=== PATIENT | female | born 1955 | race Caucasian/White ===

== ENCOUNTER 2016-06-11 12:17 | Inpatient (IN) ==
[2016-06-11] MEDS ORDERED: Nitroglycerin 0.4 MG TAB.SUBL SL PRN (14:39)
[2016-06-11] MEDS: Nitrofurantoin (BID) 100 MG CAPSULE PO SCH (16:56)
[2016-06-11] MEDS: Furosemide 40 MG TABLET PO SCH (16:56)
[2016-06-11] MEDS: *HR* OxyCODONE ER (12 HR) 10 MG TABLET PO SCH (16:56)
--- NOTE | 2016-06-11 18:14 | Internal Med History&Physical ---
Date of Encounter: 06/11/16 Time of Encounter: 17:20 Assessment and Plan (1) Hyperthyroidism Current visit: No Status: Acute Consistent with Graves' disease without ophthalmopathy. Tapazole has been held because of thrombocytopenia/pancytopenia. Continue metoprolol (2) Anemia Current visit: Yes Status: Acute Will order anemia testing in a.m. Qualifiers: Anemia type: unspecified type Qualified Code(s): D64.9 - Anemia, unspecified (3) HTN (hypertension) Current visit: No Status: Chronic Continue Norvasc, Lasix, HCTZ, lisinopril, and Toprol Qualifiers: Hypertension type: essential hypertension Qualified Code(s): I10 - Essential (primary) hypertension (4) Atrial fibrillation Current visit: No Status: Acute Now in normal sinus rhythm. Continue Toprol Qualifiers: Atrial fibrillation type: persistent Qualified Code(s): I48.1 - Persistent atrial fibrillation (5) Thrombocytopenia Current visit: No Status: Acute Remain off Tapazole monitor CBC. Internal Medicine - H&P: HPI Chief complaint: Hyperthyroxinemia Admitted From: Hospital to Hospital Transfer Plans for Post Hospital Care: Home History of present illness: Ms. Rivas is a 60 year old female who was admitted at [facility] June 05 after presenting at her PCP office with AF with RVR. She was found to have hyperthyroxinemia with undetectable TSH and thyroid stimulating immunoglobulin greater than 500%. She was treated with methimazole until she developed thrombocytopenia. She converted to normal sinus rhythm but was maintained on Eliquis. She also was maintained on metoprolol. She was transferred to [facility] swing bed for ongoing therapy prior to returning home. Review of available records show suppressed TSH as far back as June 2014 which is earliest available labs for review. Her free T4 level was normal July 2015. Her endocrine history is pertinent otherwise for past diagnosis of DM 2 made 2001 however she denies treatment for the last 10 years. She denies hyperlipidemia and states she was given statin only because of her ASHD. She states she was hospitalized at [facility] in April 2016 with AF with RVR. She denies previous episodes of atrial fibrillation before that hospitalization. Her cardiovascular history is significant otherwise for hypertension and known ASHD status post [place] with 2 vessel CABG surgery 2001. She had a heart catheter during her [facility] stay [per her [facility] records]. She had a heart catheter previously at [facility] April 2015 which showed severe 2 vessel coronary disease with patent [place] to LAD but occluded saphenous vein graft to PDA. An echocardiogram January 2016 showed LVEF of 60% and mild aortic insufficiency area there was LAE at 4.4 cm. She denies DVT or pulmonary embolus. Past Med Surg Social Fam HX - Past Medical History Medical history: coronary artery disease, hyperlipidemia, hypertension, osteoporosis, other Psychiatric history: depression - Past Surgical History Surgical History: cholecystectomy, coronary bypass (CABG), hysterectomy - Social History Smoking Status: Never smoker Smokeless Tobacco Status: No Alcohol use: none Drug use: none - Family History Mother Adopted: No Family Member Ethnicity: Non- Living Status: Hx Family Cardiac Disorders: Yes (WA) Hx Family Respiratory Disorders: No Hx Family Cancer: Yes (Bowel Cancer) Hx Family GI Disorders: Yes (Bowel Cancer) Hx Family Endocrine Disorder: Yes (DM) Hx Family Neuromuscular Disorders: No Hx Family Neurologic Disorders: No Hx Family HEENT Disorders: No Hx Family Autoimmune Disorders: No Internal Medicine - H&P: Meds Ascorbic Acid [Vitamin C] 250 mg PO BID 04/23/15 [History] Calcium Carbonate/Vitamin D3 [Calcium 500 + Vit D Caplet] 1 tab PO BID 04/23/15 [History] Ergocalciferol (VITAMIN D2) [Vitamin D2 (50,000 UNIT)] 50,000 unit PO GILLIS [History] Folic Acid 2 mg PO DAILY 04/23/15 [History] Isosorbide MONOnitrate [Isosorbide Mononitrate ER] 120 mg PO DAILY 04/23/15 [ History] Metoprolol XL (24 HR) Succ [Toprol Xl] 100 mg PO DAILY 04/23/15 [History] Multivitamin/Iron/Folic Acid [Centrum Complete Multivit Tab] 1 tab PO DAILY [History] Nitroglycerin [Nitrostat] 0.4 mg SL Q5M PRN 04/23/15 [History] [place]-3/Dha/Epa/Fish Oil [Fish Oil Dr 500 mg Softgel] 1,000 mg PO DAILY [History] Pregabalin [Lyrica] 200 mg PO BID 04/23/15 [History] Ranolazine [Ranexa] 1,000 mg PO BID 04/23/15 [History] Simvastatin [Zocor] 20 mg PO HS 04/23/15 [History] Venlafaxine HCl [Effexor Xr] 75 mg PO DAILY 04/23/15 [History] Vitamin E 1,000 units PO DAILY 04/23/15 [History] Alprazolam [Xanax 1 MG Tablet] 0.25 mg PO BID PRN 01/29/16 [History] Amitriptyline [Elavil] 25 - 50 mg PO HS 01/29/16 [History] Oxycodone HCl/Acetaminophen [Percocet 10-325 mg Tablet] 1 tab PO Q6H PRN [History] Lisinopril [Zestril] 40 mg PO DAILY #0 02/01/16 [Rx] Amlodipine Besylate 2.5 mg PO DAILY 06/05/16 [History] Apixaban [Eliquis] 5 mg PO BID 06/05/16 [History] Furosemide [Lasix] 40 mg PO BID 06/05/16 [History] Hydrochlorothiazide 25 mg PO DAILY 06/05/16 [History] Megestrol Acetate [Megace] 400 mg PO DAILY 06/05/16 [History] Pantoprazole Sodium [Protonix] 40 mg PO DAILY 06/05/16 [History] Paroxetine HCl [Paxil] 20 mg PO DAILY 06/05/16 [History] Aspirin 81 mg PO DAILY #90 tab.chew 06/10/16 [Rx] Nitrofurantoin (BID) [Macrobid] 100 mg PO BIDWM #13 capsule 06/10/16 [Rx] OxyCODONE ER (12 HR) [OxyCONTIN] 10 mg PO Q12HR #60 tab.er.12h 06/11/16 [Rx] Allergies hydrocodone [From Vicodin] Allergy (Verified 06/05/16 14:36) Swelling of Lip/Tongue/Throat All Systems PM: A 10-system review of systems was performed and is negative for pertinent findings except as documented above in the HPI. Review of systems: Oral: She states her weight has decreased 54 pounds since December 2015, unintentional. Cardiovascular: As per history of present illness Respiratory: She states she is a lifelong nonsmoker and has no known chronic lung disease GI: She has had cholecystectomy. She reports diarrhea for the last 3 months. She denies disorders of her liver or exocrine pancreas : She denies hematuria dysuria or kidney stones Neurologic: She denies large distribution strokes or seizures. Endocrine: As per history of present illness Hematology/oncology: She has anemia. She denies internal malignancies or other blood disorders Psychiatric: She denies anxiety depression or mental health issues Musk skeletal: She has arthritis and degenerative disc disease of her neck. - Constitutional Vitals: Temp Pulse Resp BP Pulse Ox 98.5 F 56 18 128/71 98 06/11/16 14:55 06/11/16 14:55 06/11/16 14:55 06/11/16 14:55 06/11/16 14:55 Exam: Gen.: She is well-developed well-nourished female who appears in no severe distress at present time HEENT: Head is atraumatic and normal cephalic. Eyes: EOMI. There is no scleral icterus. She does not have exophthalmos. Mouth: Mucosa is moist. Neck: Supple and nontender. There is no thyromegaly or adenopathy noted. Heart: Regular without murmurs gallops or ectopics Lungs: No wheezes or crackles heard. Abdomen: Soft and nontender. No masses or guarding are noted. Extremities: There is no cyanosis edema or clubbing noted. Dorsalis pedis and posttibial pulses are 2 over 2 bilaterally. Neurologic: Mental status: She is talkative and a good historian. Cranial nerves: Smile is symmetric. Forehead wrinkles bilaterally. Tongue protrudes midline. EOMI. Motor: There is no pronator drift. She does not have visible tremor. Cerebellar: Finger to nose is intact bilaterally. Skin: Warm and dry.
[2016-06-11] MEDS: Ranolazine 500 MG TAB.ER.12H PO SCH (19:48)
[2016-06-11] MEDS: Ascorbic Acid 500 MG TABLET PO SCH (19:48)
[2016-06-11] MEDS: Pregabalin 50 MG CAPSULE PO SCH (19:48)
[2016-06-11] MEDS: APIXABAN 5 MG TABLET PO SCH (19:49)
[2016-06-11] MEDS ORDERED: NON-FORMULARY MEDICATION 1 EACH EACH (Calcium Carbonate/Vitamin D3 [Calcium 500 + Vit D Ca PO SCH (21:00)
[2016-06-12] MEDS: *HR* OxyCODONE ER (12 HR) 10 MG TABLET PO SCH ×2 (06:05→17:34)
[2016-06-12 06:16] LABS: Basophils % 0.2 %; Eosinophils % 0.5 %; Hematocrit 28.3 % (35.3-44.9); Hemoglobin 9.2 g/dL (11.5-15.4); Immature Granulocytes % 0.2 % (0-4); Lymphocytes # 1.2 K/mcL (0.6-4.6); Lymphocytes % 20.8 %; Mean Corpuscular HGB Conc 32.5 g/dL (31.6-35.5); Mean Corpuscular Hemoglobin 26.7 pg (28.0-33.3); Mean Corpuscular Volume 82.3 fL (83.0-100.0); Mean Platelet Volume 13.8 fL (9.4-12.4); Monocytes # 0.5 K/mcL (0.0-1.3); Monocytes % 7.8 %; Neutrophils # 4.2 K/mcL (1.6-8.9); Red Blood Count 3.44 M/mcL (3.82-4.97); Segmented Neutrophils % 70.5 %
[2016-06-12 06:29] LABS: Platelet Count 87 K/mcL (140-400)
[2016-06-12 06:32] LABS: Alanine Aminotransferase 20 Units/L (0-55); Albumin 2.3 g/dL (3.5-5.0); Albumin/Globulin Ratio 0.7 (1.1-2.2); Alkaline Phosphatase 223 Units/L (38-126); Aspartate Amino Transferase 32 Units/L (5-34); BUN/Creatinine Ratio 24 (6-26); Bilirubin,Total 1.1 mg/dL (0.2-1.2); Blood Urea Nitrogen 11 mg/dL (7-20); Calcium 8.9 mg/dL (8.6-10.8); Carbon Dioxide 25 mEq/L (19-29); Chloride 105 mEq/L (98-109); Globulin 3.3 g/dL (2.4-3.5); Glucose 95 mg/dL (70-99); Osmolality,Calculated 289 (280-300); Potassium 3.4 mEq/L (3.5-4.5); Sodium 140 mEq/L (136-145); Total Protein 5.6 g/dL (6.0-8.3); eGFR For African Americans > 60 (> 60); eGFR For Non-African Americans > 60 (> 60)
[2016-06-12] MEDS ORDERED: NON-FORMULARY MEDICATION 1 EACH EACH (Omega-3/Dha/Epa/Fish Oil [Fish Oil Dr 500 Mg Softgel PO SCH (09:00)
[2016-06-12] MEDS: APIXABAN 5 MG TABLET PO SCH ×2 (09:20→20:12)
[2016-06-12] MEDS: Pregabalin 50 MG CAPSULE PO SCH ×2 (09:20→20:11)
[2016-06-12] MEDS: Nitrofurantoin (BID) 100 MG CAPSULE PO SCH ×2 (09:20→17:33)
[2016-06-12] MEDS: Ascorbic Acid 500 MG TABLET PO SCH (09:21)
[2016-06-12] MEDS: Furosemide 40 MG TABLET PO SCH (09:21)
[2016-06-12] MEDS: Isosorbide MONOnitrate (24 HR) 60 MG TAB.ER.24H PO SCH (09:21)
[2016-06-12] MEDS: Lisinopril 20 MG TABLET PO SCH (09:21)
[2016-06-12] MEDS: Multivit/Ca/Min/Fe/FA 1 TAB TABLET PO SCH (09:21)
[2016-06-12] MEDS: Aspirin 81 MG TAB.CHEW PO SCH (09:22)
[2016-06-12] MEDS: Metoprolol XL (24 HR) Succ 50 MG TAB.ER.24H PO SCH (09:22)
[2016-06-12] MEDS: Folic Acid 1 MG TABLET PO SCH (09:22)
[2016-06-12] MEDS: Venlafaxine XR (24 HR) 37.5 MG CAP.ER.24H PO SCH (09:22)
[2016-06-12] MEDS: Ranolazine 500 MG TAB.ER.12H PO SCH ×2 (09:22→20:11)
[2016-06-12] MEDS: Megestrol Acetate 400 MG/10 ML UDC PO SCH (09:23)
[2016-06-12] MEDS: Cholecalciferol (D-3) 1,000 UNIT TABLET PO SCH (09:23)
[2016-06-12 10:35] LABS: % Iron Saturation 4 % (15-50); Iron 12 mcg/dL (50-170); Transferrin 195 mg/dL (180-382)
[2016-06-12 10:55] LABS: Ferritin 131 ng/ml (5-204)
[2016-06-12 11:09] LABS: Folate 16.3 ng/mL (7.0-31.4)
--- NOTE | 2016-06-12 12:30 | Internal Med Progress Note ---
Date of Encounter: 06/12/16 Time of Encounter: 12:20 - Assessment and plan (1) Hyperthyroidism Current Visit: No Status: Acute Assessment and plan: June 12. Consistent with Graves' disease without ophthalmopathy. Tapazole has been held because of thrombocytopenia/pancytopenia. Continue metoprolol. Recheck labs in a.m. including free T4 (2) Anemia Current Visit: Yes Status: Acute Assessment and plan: June 12. Anemia testing shows probable iron deficiency. Folate level was normal. We will start ferrous sulfate with vitamin C. Qualifiers: Anemia type: unspecified type Qualified Code(s): D64.9 - Anemia, unspecified (3) HTN (hypertension) Current Visit: No Status: Chronic Assessment and plan: June 12. We will discontinue Norvasc because of worsening edema. Continue Lasix, HCTZ, lisinopril, and Toprol. We will check BNP peptide in a.m. Qualifiers: Hypertension type: essential hypertension Qualified Code(s): I10 - Essential (primary) hypertension (4) Atrial fibrillation Current Visit: No Status: Acute Assessment and plan: June 12. Remains in NSR/sinus bradycardia. Continue Toprol. Qualifiers: Atrial fibrillation type: persistent Qualified Code(s): I48.1 - Persistent atrial fibrillation (5) Thrombocytopenia Current Visit: No Status: Acute Assessment and plan: June 12. Platelet count gradually improving. Remain off Tapazole for now. (6) Hypomagnesemia Current Visit: Yes Status: Acute Assessment and plan: June 12. Magnesium level was 1.4 on 06/11/2016. We will start magnesium oxide. (7) Low vitamin D level Current Visit: Yes Status: Acute Assessment and plan: June 12. Vitamin D level was low at 23 on 10/31/2014. We will recheck in a.m. (8) Hypokalemia Current Visit: No Status: Acute Assessment and plan: June 12. We will start supplemental potassium and monitor labs. - Subjective Interval history: June 12. She complains of pain and swelling in her legs. - Constitutional Vitals: Temp Pulse Resp BP Pulse Ox 98.3 F 64 18 150/63 96 06/12/16 08:18 06/12/16 08:18 06/12/16 08:18 06/12/16 08:18 06/12/16 08:18 Exam: She is resting in bed and appears to be in mild discomfort. Her leg edema has increased slightly from yesterday. It is regular with rate approximately 52/m. Lungs are clear anteriorly. I reviewed her medications and lab results. Internal Medicine: Result - Labs CBC & Chem 7: 06/12/16 05:52 06/12/16 05:52 Labs: Short CBC 06/12/16 Range/Units 05:52 WBC 5.9 (4.3-11.1) K/mcL Hgb 9.2 L (11.5-15.4) g/dL Hct 28.3 L (35.3-44.9) % Plt Count 87 L (140-400) K/mcL Neutrophils # 4.2 (1.6-8.9) K/mcL BMP 06/12/16 05:52 Sodium 140 Potassium 3.4 L Chloride 105 Carbon Dioxide 25 BUN 11 Creatinine 0.45 L Glucose 95 Calcium 8.9 Liver Function 06/12/16 Range/Units 05:52 Total Bilirubin 1.1 (0.2-1.2) mg/dL AST 32 (5-34) Units/L ALT 20 (0-55) Units/L Alkaline Phosphatase 223 H (38-126) Units/L Albumin 2.3 L (3.5-5.0) g/dL Consult Discharge Plan - Plan Referrals: NO,PCP [Primary Care Provider] - 1 week
[2016-06-12] MEDS: *HR* OxyCODONE/APAP 10/325 TABLET PO PRN (13:04)
[2016-06-12] MEDS: Bumetanide 1 MG TABLET PO SCH ×2 (13:07→17:33)
[2016-06-13] MEDS: *HR* OxyCODONE ER (12 HR) 10 MG TABLET PO SCH ×2 (06:11→17:58)
[2016-06-13] MEDS: Ascorbic Acid 500 MG TABLET PO SCH (06:11)
[2016-06-13 06:22] LABS: Uric Acid 5.9 mg/dL (2.6-6.0)
[2016-06-13] MEDS: Megestrol Acetate 400 MG/10 ML UDC PO SCH (08:05)
[2016-06-13] MEDS: Ranolazine 500 MG TAB.ER.12H PO SCH ×2 (08:05→22:28)
[2016-06-13] MEDS: Isosorbide MONOnitrate (24 HR) 60 MG TAB.ER.24H PO SCH (08:05)
[2016-06-13] MEDS: Venlafaxine XR (24 HR) 37.5 MG CAP.ER.24H PO SCH (08:06)
[2016-06-13] MEDS: Aspirin 81 MG TAB.CHEW PO SCH (08:06)
[2016-06-13] MEDS: Pregabalin 50 MG CAPSULE PO SCH ×2 (08:06→22:28)
[2016-06-13] MEDS: Folic Acid 1 MG TABLET PO SCH (08:06)
[2016-06-13] MEDS: Lisinopril 20 MG TABLET PO SCH (08:07)
[2016-06-13] MEDS: Cholecalciferol (D-3) 1,000 UNIT TABLET PO SCH (08:07)
[2016-06-13] MEDS: Multivit/Ca/Min/Fe/FA 1 TAB TABLET PO SCH (08:07)
[2016-06-13] MEDS: Metoprolol XL (24 HR) Succ 50 MG TAB.ER.24H PO SCH ×2 (08:07→08:09)
[2016-06-13] MEDS: Bumetanide 1 MG TABLET PO SCH ×2 (08:07→17:59)
--- NOTE | 2016-06-13 15:43 | Internal Med Progress Note ---
Date of Encounter: 06/13/16 Time of Encounter: 15:35 - Assessment and plan (1) Hyperthyroidism Current Visit: No Status: Acute Assessment and plan: June 12. Consistent with Graves' disease without ophthalmopathy. Tapazole has been held because of thrombocytopenia/pancytopenia. Continue metoprolol. Recheck labs in a.m. including free T4 June 13. Free T4 has decreased to 2.06 from 3.00 on 06/06/2016. Continue metoprolol. (2) Anemia Current Visit: Yes Status: Acute Assessment and plan: June 12. Anemia testing shows probable iron deficiency. Folate level was normal. We will start ferrous sulfate with vitamin C. June 13. Continue ferrous sulfate with vitamin C Qualifiers: Anemia type: unspecified type Qualified Code(s): D64.9 - Anemia, unspecified (3) HTN (hypertension) Current Visit: No Status: Chronic Assessment and plan: June 12. We will discontinue Norvasc because of worsening edema. Continue Lasix, HCTZ, lisinopril, and Toprol. We will check BNP peptide in a.m. June 13. Edema has lessened. Continue Bumex, HCTZ, lisinopril, and Toprol. Remain off Norvasc. Qualifiers: Hypertension type: essential hypertension Qualified Code(s): I10 - Essential (primary) hypertension (4) Atrial fibrillation Current Visit: No Status: Acute Assessment and plan: June 12. Remains in NSR/sinus bradycardia. Continue Toprol. Qualifiers: Atrial fibrillation type: persistent Qualified Code(s): I48.1 - Persistent atrial fibrillation (5) Thrombocytopenia Current Visit: No Status: Acute Assessment and plan: June 12. Platelet count gradually improving. Remain off Tapazole for now. June 13. Recheck labs in a.m. (6) Hypomagnesemia Current Visit: Yes Status: Acute Assessment and plan: June 12. Magnesium level was 1.4 on 06/11/2016. We will start magnesium oxide. June 13. Recheck labs in a.m. (7) Low vitamin D level Current Visit: Yes Status: Acute Assessment and plan: June 12. Vitamin D level was low at 23 on 10/31/2014. We will recheck in a.m. June 13. Vitamin D level pending (8) Hypokalemia Current Visit: No Status: Acute Assessment and plan: June 12. We will start supplemental potassium and monitor labs. June 13. Recheck labs in a.m. Continue supplemental potassium for now - Subjective Interval history: June 12. She complains of pain and swelling in her legs. June 13. She complains only of back pain which is chronic. She denies dyspnea or other new problems. Nursing staff reports she has been lethargic much the day. - Constitutional Vitals: Temp Pulse Resp BP Pulse Ox 98.8 F 57 18 109/51 93 06/13/16 07:30 06/13/16 07:30 06/13/16 07:30 06/13/16 07:30 06/13/16 10:35 Exam: She is lying in bed awake and answers questions properly. She does occasionally seem to moan with back pain. Her heart is regular without murmurs gallops or ectopics. Lungs are clear anteriorly. Abdomen is nontender. Extremities show trace edema. I reviewed her medications and lab results. Internal Medicine: Result - Labs CBC & Chem 7: 06/12/16 05:52 06/12/16 05:52 Consult Discharge Plan - Plan Referrals: NO,PCP [Primary Care Provider] - 1 week
[2016-06-13] MEDS ORDERED: Folic Acid 1 MG TABLET PO SCH (15:48)
[2016-06-13] MEDS: APIXABAN 5 MG TABLET PO SCH ×2 (17:55→22:28)
[2016-06-13] MEDS: *HR* OxyCODONE/APAP 10/325 TABLET PO PRN (22:28)
[2016-06-14 06:04] LABS: Basophils % 0.1 %; Eosinophils # 0.2 K/mcL (0.0-0.6); Eosinophils % 1.9 %; Hematocrit 24.9 % (35.3-44.9); Hemoglobin 8.2 g/dL (11.5-15.4); Immature Granulocytes % 0.4 % (0-4); Lymphocytes # 1.1 K/mcL (0.6-4.6); Lymphocytes % 12.9 %; Mean Corpuscular HGB Conc 32.9 g/dL (31.6-35.5); Mean Corpuscular Hemoglobin 27.2 pg (28.0-33.3); Mean Corpuscular Volume 82.5 fL (83.0-100.0); Mean Platelet Volume 14.1 fL (9.4-12.4); Monocytes # 0.5 K/mcL (0.0-1.3); Monocytes % 5.4 %; Neutrophils # 6.6 K/mcL (1.6-8.9); Platelet Count 103 K/mcL (140-400); Red Blood Count 3.02 M/mcL (3.82-4.97); Red Cell Distribution Width 15.5 % (11.5-14.5); Segmented Neutrophils % 79.3 %
[2016-06-14 06:18] LABS: BUN/Creatinine Ratio 35 (6-26); Blood Urea Nitrogen 24 mg/dL (7-20); Calcium 8.5 mg/dL (8.6-10.8); Carbon Dioxide 26 mEq/L (19-29); Chloride 102 mEq/L (98-109); Glucose 110 mg/dL (70-99); Osmolality,Calculated 295 (280-300); Potassium 3.3 mEq/L (3.5-4.5); Sodium 140 mEq/L (136-145); eGFR For African Americans > 60 (> 60); eGFR For Non-African Americans > 60 (> 60)
[2016-06-14] MEDS: *HR* OxyCODONE ER (12 HR) 10 MG TABLET PO SCH (06:34)
[2016-06-14] MEDS: Ascorbic Acid 500 MG TABLET PO SCH (06:35)
[2016-06-14 08:23] VITALS: BP 96/42
[2016-06-14] MEDS: Metoprolol XL (24 HR) Succ 50 MG TAB.ER.24H PO SCH (09:31)
[2016-06-14] MEDS: Lisinopril 20 MG TABLET PO SCH (09:31)
[2016-06-14] MEDS: Bumetanide 1 MG TABLET PO SCH (09:32)
[2016-06-14] MEDS: Isosorbide MONOnitrate (24 HR) 60 MG TAB.ER.24H PO SCH (09:32)
[2016-06-14] MEDS: Multivit/Ca/Min/Fe/FA 1 TAB TABLET PO SCH (09:32)
[2016-06-14] MEDS: Ranolazine 500 MG TAB.ER.12H PO SCH (09:32)
[2016-06-14] MEDS: Aspirin 81 MG TAB.CHEW PO SCH (09:33)
[2016-06-14] MEDS: Cholecalciferol (D-3) 1,000 UNIT TABLET PO SCH (09:33)
[2016-06-14] MEDS: APIXABAN 5 MG TABLET PO SCH (09:42)
[2016-06-14] MEDS: Pregabalin 50 MG CAPSULE PO SCH (09:44)
[2016-06-14] MEDS: Venlafaxine XR (24 HR) 37.5 MG CAP.ER.24H PO SCH (09:44)
--- NOTE | 2016-06-14 10:07 | Internal Med Progress Note ---
Date of Encounter: 06/14/16 Time of Encounter: 09:55 - Assessment and plan (1) Hyperthyroidism Current Visit: No Status: Acute Assessment and plan: June 12. Consistent with Graves' disease without ophthalmopathy. Tapazole has been held because of thrombocytopenia/pancytopenia. Continue metoprolol. Recheck labs in a.m. including free T4 June 13. Free T4 has decreased to 2.06 from 3.00 on 06/06/2016. Continue metoprolol. (2) Anemia Current Visit: Yes Status: Acute Assessment and plan: June 12. Anemia testing shows probable iron deficiency. Folate level was normal. We will start ferrous sulfate with vitamin C. June 13. Continue ferrous sulfate with vitamin C June 14. Hemoglobin has decreased to 8.2. We will hold aspirin for now. Qualifiers: Anemia type: unspecified type Qualified Code(s): D64.9 - Anemia, unspecified (3) HTN (hypertension) Current Visit: No Status: Chronic Assessment and plan: June 12. We will discontinue Norvasc because of worsening edema. Continue Lasix, HCTZ, lisinopril, and Toprol. We will check BNP peptide in a.m. June 13. Edema has lessened. Continue Bumex, HCTZ, lisinopril, and Toprol. Remain off Norvasc. Qualifiers: Hypertension type: essential hypertension Qualified Code(s): I10 - Essential (primary) hypertension (4) Atrial fibrillation Current Visit: No Status: Acute Assessment and plan: June 12. Remains in NSR/sinus bradycardia. Continue Toprol. Qualifiers: Atrial fibrillation type: persistent Qualified Code(s): I48.1 - Persistent atrial fibrillation (5) Thrombocytopenia Current Visit: No Status: Acute Assessment and plan: June 12. Platelet count gradually improving. Remain off Tapazole for now. June 13. Recheck labs in a.m. June 14. Improved with platelet count now 103,000. (6) Hypomagnesemia Current Visit: Yes Status: Acute Assessment and plan: June 12. Magnesium level was 1.4 on 06/11/2016. We will start magnesium oxide. June 13. Recheck labs in a.m. June 14. Continue magnesium oxide (7) Low vitamin D level Current Visit: Yes Status: Acute Assessment and plan: June 12. Vitamin D level was low at 23 on 10/31/2014. We will recheck in a.m. June 13. Vitamin D level pending June 14. Vitamin D level still pending (8) Hypokalemia Current Visit: No Status: Acute Assessment and plan: June 12. We will start supplemental potassium and monitor labs. June 13. Recheck labs in a.m. Continue supplemental potassium for now June 14. Potassium level unimproved. We will increase potassium supplement and monitor labs. - Subjective Interval history: June 12. She complains of pain and swelling in her legs. June 13. She complains only of back pain which is chronic. She denies dyspnea or other new problems. Nursing staff reports she has been lethargic much the day. June 14. She has no new complaints and states she feels better. - Constitutional Vitals: Temp Pulse Resp BP Pulse Ox 98.0 F 54 16 96/42 93 06/14/16 08:21 06/14/16 08:21 06/14/16 08:21 06/14/16 08:21 06/14/16 08:21 Exam: She is sitting in bed and appears in no acute distress. She is appropriate in conversation. Her heart is regular without murmurs gallops or ectopics. Lungs are clear anteriorly. Extremities show trace pitting edema. I reviewed her medications and lab results. Internal Medicine: Result - Labs CBC & Chem 7: 06/14/16 04:53 06/14/16 04:53 Labs: Short CBC 06/14/16 Range/Units 04:53 WBC 8.3 (4.3-11.1) K/mcL Hgb 8.2 L (11.5-15.4) g/dL Hct 24.9 L (35.3-44.9) % Plt Count 103 L (140-400) K/mcL Neutrophils # 6.6 (1.6-8.9) K/mcL BMP 06/14/16 04:53 Sodium 140 Potassium 3.3 L Chloride 102 Carbon Dioxide 26 BUN 24 H D Creatinine 0.69 D Glucose 110 H Calcium 8.5 L Consult Discharge Plan - Plan Referrals: NO,PCP [Primary Care Provider] - 1 week
[2016-06-14] MEDS ORDERED: Pregabalin 50 MG CAPSULE PO SCH (10:14)
[2016-06-14] MEDS ORDERED: Magnesium Oxide 400 MG TABLET PO SCH (10:15)
--- NOTE | 2016-06-14 10:36 | Discharge Summary ---
Date of Encounter: 06/14/16 Time of Encounter: 10:20 - Discharge Diagnosis (1) Hyperthyroidism Priority: Primary Status: Acute (2) Anemia Priority: Secondary Status: Acute Qualifiers: Anemia type: unspecified type Qualified Code(s): D64.9 - Anemia, unspecified (3) HTN (hypertension) Priority: Secondary Status: Chronic Qualifiers: Hypertension type: essential hypertension Qualified Code(s): I10 - Essential (primary) hypertension (4) Atrial fibrillation Priority: Secondary Status: Acute Qualifiers: Atrial fibrillation type: paroxysmal Qualified Code(s): I48.0 - Paroxysmal atrial fibrillation (5) Thrombocytopenia Priority: Secondary Status: Acute (6) Hypomagnesemia Priority: Secondary Status: Acute (7) Low vitamin D level Priority: Secondary Status: Acute (8) Hypokalemia Priority: Secondary Status: Acute - Discharge Medications Prescriptions: Bumetanide [Bumex] 1 mg PO DAILY #30 tablet Ferrous Sulfate 325 mg PO DAILY #30 tablet Magnesium Oxide [Mag-Ox] 400 mg PO BID #14 tablet OxyCODONE/APAP 10/325 [Percocet 10/325 MG] 1 each PO Q6H PRN #4 tablet PRN Reason: Pain Home Medications: Calcium Carbonate/Vitamin D3 [Calcium 500 + Vit D Caplet] 1 tab PO BID 04/23/15 [History] Ergocalciferol (VITAMIN D2) [Vitamin D2 (50,000 UNIT)] 50,000 unit PO GILLIS [History] Folic Acid 2 mg PO DAILY 04/23/15 [History] Isosorbide MONOnitrate [Isosorbide Mononitrate ER] 120 mg PO DAILY 04/23/15 [ History] Metoprolol XL (24 HR) Succ [Toprol Xl] 100 mg PO DAILY 04/23/15 [History] Multivitamin/Iron/Folic Acid [Centrum Complete Multivit Tab] 1 tab PO DAILY [History] Nitroglycerin [Nitrostat] 0.4 mg SL Q5M PRN 04/23/15 [History] [place]-3/Dha/Epa/Fish Oil [Fish Oil Dr 500 mg Softgel] 1,000 mg PO DAILY [History] Ranolazine [Ranexa] 1,000 mg PO BID 04/23/15 [History] Simvastatin [Zocor] 20 mg PO HS 04/23/15 [History] Venlafaxine HCl [Effexor Xr] 75 mg PO DAILY 04/23/15 [History] Vitamin E 1,000 units PO DAILY 04/23/15 [History] Alprazolam [Xanax 1 MG Tablet] 0.25 mg PO BID PRN 01/29/16 [History] Amitriptyline [Elavil] 25 - 50 mg PO HS 01/29/16 [History] Oxycodone HCl/Acetaminophen [Percocet 10-325 mg Tablet] 1 tab PO Q6H PRN [History] Lisinopril [Zestril] 40 mg PO DAILY #0 02/01/16 [Rx] Apixaban [Eliquis] 5 mg PO BID 06/05/16 [History] Paroxetine HCl [Paxil] 20 mg PO DAILY 06/05/16 [History] OxyCODONE ER (12 HR) [OxyCONTIN] 10 mg PO Q12HR #60 tab.er.12h 06/11/16 [Rx] Ascorbic Acid [Vitamin C] 500 mg PO DAILY #0 06/14/16 [Rx] Bumetanide [Bumex] 1 mg PO DAILY #30 tablet 06/14/16 [Rx] Ferrous Sulfate 325 mg PO DAILY #30 tablet 06/14/16 [Rx] Hydrochlorothiazide 12.5 mg PO DAILY #0 06/14/16 [Rx] Magnesium Oxide [Mag-Ox] 400 mg PO BID #14 tablet 06/14/16 [Rx] OxyCODONE/APAP 10/325 [Percocet 10/325 MG] 1 each PO Q6H PRN #4 tablet 06/14/16 [Rx] Pregabalin [Lyrica] 100 mg PO BID #0 06/14/16 [Rx] Allergies/Adverse Reactions: Allergies hydrocodone [From Vicodin] Allergy (Verified 06/05/16 14:36) Swelling of Lip/Tongue/Throat Date of admission: 06/11/16 14:31 Primary care physician: Chidi Gutiérrez M.D. Consults: 06/11/16 14:55 Consult to Occupational Therapy [CONS] Routine Comment: evaluate, develop, and implement plan of care Consult to Physical Therapy [CONS] Routine Comment: evaluate, develop, and implement plan of care Consult to Healthcare Science Specialist [CONS] Routine Reason for SW Consult: discharge planning 06/11/16 18:22 Consult to Nutrition [CONS] Routine Comment: Consulting Provider: NUTRITION Reason for Dietary Consult: MST Score - Patient Status Disposition: Home Health Service Functional capacity at discharge: uses cane/walker - Discharge Instructions Follow Up With: Chidi Holguin MD [Partnered Physician] - 1 week - Diet and Activity Activity: ambulate only with your walker, as per physical therapy Diet: advance to your usual diet Hospital course: Ms. Rivas is a 60 year old female who was admitted at [facility] June 05- after presenting at her PCP office with AF with RVR. She was found to have hyperthyroxinemia with undetectable TSH and thyroid stimulating immunoglobulin greater than 500%. She was treated with methimazole until she developed thrombocytopenia. She converted to normal sinus rhythm but was maintained on Eliquis. She also was maintained on metoprolol. She was transferred to [facility] swing bed for ongoing therapy prior to returning home. Initial orders were written by the discharging physicians at [facility]. I saw her on June 11 and performed the swing bed history and physical. She remained off Tapazole. Repeat free T4 level returned elevated but improved to 2.06. She remained in normal sinus rhythm during her hospital stay. She will be maintained on Toprol at discharge. Anemia testing showed probable iron deficiency. She was started on ferrous sulfate with vitamin C and these will be continued at discharge. Folate level was normal. Hemoglobin had decreased to 8.2 on the day of discharge so aspirin will be held at discharge. She will continue Eliquis. Her platelet count improved to 103,000 by the day of discharge. She will remain off Tapazole as per above. Magnesium level was decreased at 1.3. She will be given magnesium oxide at discharge. A vitamin D level was ordered but results are pending at time of discharge. She was changed from Lasix to Bumex and HCTZ dose was reduced to 12.5 mg daily. Norvasc was discontinued and Lyrica dose reduced because of edema. She had mild hypokalemia with potassium 3.3 at discharge. I encouraged family to let her remain in the swing bed until June 15 but they declined. Continue supplemental potassium at home. When I saw her on June 14 the family reported they were dissatisfied with the quality of nursing care given her since admission. They wished her to be discharged home. She will follow with her PCP Dr. Holguin within 1 week. I will order home health services. - Time Spent with Patient Total time spent providing and/or coordinating discharge services: - Constitutional Vitals: Temp Pulse Resp BP Pulse Ox 98.0 F 54 16 96/42 93 06/14/16 08:21 06/14/16 08:21 06/14/16 08:21 06/14/16 08:21 06/14/16 08:21
--- NOTE | 2016-06-14 10:49 | Physician Discharge Referral ---
Home Health/Hosp Referral Info Transfer to: Home Health Attending Provider: Mahesh Provider in Charge Post Discharge: PCP (Chidi Holguin M.D.) - Diagnosis (1) Hyperthyroidism Priority: Primary Status: Acute (2) Anemia Priority: Secondary Status: Acute (3) HTN (hypertension) Priority: Secondary Status: Chronic (4) Atrial fibrillation Priority: Secondary Status: Acute (5) Thrombocytopenia Priority: Secondary Status: Acute (6) Hypomagnesemia Priority: Secondary Status: Acute (7) Low vitamin D level Priority: Secondary Status: Acute (8) Hypokalemia Priority: Secondary Status: Acute - Respiratory Orders Smoking Cessation: Smoking cessation has been advised. For more information, call the [place] Tobacco Quit Line at 0-282-NZFX-NOW. - Diet/Nutrition Diet/Nutrition Orders: Regular - Activity Activity Orders: Walker - Services Needed Following services are medically necessary services: Nursing, Home Health Aide, Physical Therapy, Occupational Therapy - Transfer Medications Prescriptions: Bumetanide [Bumex] 1 mg PO DAILY #30 tablet Ferrous Sulfate 325 mg PO DAILY #30 tablet Magnesium Oxide [Mag-Ox] 400 mg PO BID #14 tablet OxyCODONE/APAP 10/325 [Percocet 10/325 MG] 1 each PO Q6H PRN #4 tablet PRN Reason: Pain Potassium Chloride 10 meq PO BIDWM #60 tab.er.prt Home Medications: Calcium Carbonate/Vitamin D3 [Calcium 500 + Vit D Caplet] 1 tab PO BID 04/23/15 [History] Ergocalciferol (VITAMIN D2) [Vitamin D2 (50,000 UNIT)] 50,000 unit PO GILLIS [History] Folic Acid 2 mg PO DAILY 04/23/15 [History] Isosorbide MONOnitrate [Isosorbide Mononitrate ER] 120 mg PO DAILY 04/23/15 [ History] Metoprolol XL (24 HR) Succ [Toprol Xl] 100 mg PO DAILY 04/23/15 [History] Multivitamin/Iron/Folic Acid [Centrum Complete Multivit Tab] 1 tab PO DAILY [History] Nitroglycerin [Nitrostat] 0.4 mg SL Q5M PRN 04/23/15 [History] [place]-3/Dha/Epa/Fish Oil [Fish Oil Dr 500 mg Softgel] 1,000 mg PO DAILY [History] Ranolazine [Ranexa] 1,000 mg PO BID 04/23/15 [History] Simvastatin [Zocor] 20 mg PO HS 04/23/15 [History] Venlafaxine HCl [Effexor Xr] 75 mg PO DAILY 04/23/15 [History] Vitamin E 1,000 units PO DAILY 04/23/15 [History] Alprazolam [Xanax 1 MG Tablet] 0.25 mg PO BID PRN 01/29/16 [History] Amitriptyline [Elavil] 25 - 50 mg PO HS 01/29/16 [History] Oxycodone HCl/Acetaminophen [Percocet 10-325 mg Tablet] 1 tab PO Q6H PRN [History] Lisinopril [Zestril] 40 mg PO DAILY #0 02/01/16 [Rx] Apixaban [Eliquis] 5 mg PO BID 06/05/16 [History] Paroxetine HCl [Paxil] 20 mg PO DAILY 06/05/16 [History] OxyCODONE ER (12 HR) [OxyCONTIN] 10 mg PO Q12HR #60 tab.er.12h 06/11/16 [Rx] Ascorbic Acid [Vitamin C] 500 mg PO DAILY #0 06/14/16 [Rx] Bumetanide [Bumex] 1 mg PO DAILY #30 tablet 06/14/16 [Rx] Ferrous Sulfate 325 mg PO DAILY #30 tablet 06/14/16 [Rx] Hydrochlorothiazide 12.5 mg PO DAILY #0 06/14/16 [Rx] Magnesium Oxide [Mag-Ox] 400 mg PO BID #14 tablet 06/14/16 [Rx] OxyCODONE/APAP 10/325 [Percocet 10/325 MG] 1 each PO Q6H PRN #4 tablet 06/14/16 [Rx] Potassium Chloride 10 meq PO BIDWM #60 tab.er.prt 06/14/16 [Rx] Pregabalin [Lyrica] 100 mg PO BID #0 06/14/16 [Rx] Allergies/Adverse Reactions: Allergies hydrocodone [From Vicodin] Allergy (Verified 06/05/16 14:36) Swelling of Lip/Tongue/Throat Certification: Further, I certify that my clinical findings support that this patient is homebound (i.e. absences from home require considerable and taxing effort and are for medical reasons or [facility]aritan services or infrequently or short duration when for other reasons) because: Homebound Reason: Leaving home requires considerable and taxing effort due to condition (Chronic low back pain. Difficult ambulation) Attestation: My signature below is to certify that this patient is under my care and that I, or nurse practitioner, or a physician's curatorial assistant working with me, has a face-to -face encounter with this patient.
== END 2016-06-14 11:05 | disposition home health service (06) | DRG 945 ==
LOC: INPPIK 14:31
PROVIDERS: ADMIT Internal Medicine; ATTEND Internal Medicine

== ENCOUNTER 2017-07-05 22:20 | Inpatient (IN) ==
--- NOTE | 2017-07-05 22:33 | Emergency Department Note ---
Disposition Clinical Impression: Chest pain, CHF (congestive heart failure), Pleural effusion, Atrial fibrillation with RVR Disposition: Admitted As Inpatient Condition: Fair Referrals: NONE,PCP [Primary Care Provider] - Forms: ED Satisfaction Letter Time of Disposition: 23:44 (Mahesh miller [facility]) SOB HPI - General Chief Complaint: ED Shortness of Breath/Dyspnea Stated Complaint: Dyspnea, Bilat pitting edema,worse X 5 days Time Seen by Provider: 07/05/17 22:20 Source: patient Mode of arrival: wheelchair Limitations: physical limitation Nursing Notes Reviewed: Yes Vital Signs Reviewed: Yes - History of Present Illness 61-year-old who presents emergency room was having increasing shortness of breath over the past 4 days swelling in the abdomen and into the breast bilaterally noted patient states once it hits her thighs then it's all downhill after that she denies any blurred vision double vision loss vision she denies diarrhea melena hematochezia or hematemesis she's been increasing her amount of Lasix she's been taking Family tells me that she is supposed to take 20-40 mg daily depending upon how she feels and her weight family tells me that she's been taking 40 mg a day she gets her oxygen from [facility] and has been out for the past 4 days they have tried to get her here but had been unsuccessful she is had no sputum production she's having a little cough and congestion she's been having to sit upright she is able to ambulate but is short of breath with activity denies any additional complaints family denies any additional complaints Pt Subjective Complaint: shortness of breath Onset (ago): day(s) (4) Context: other (chf) Severity: moderate, severe Consistency/Duration: constant, gradually worsening Improves with: nothing Worsens with: exertion, movement Known history of: congestive heart failure Associated symptoms: Reports: orthopnea. Denies: chest pain, pain with inspiration, fever, cough, wheezing, sputum production, lower extremity pain, polyuria, polydipsia, parasthesias, palpitations, hemoptysis, diaphoresis, nausea/vomiting, syncope, abdominal pain, rash, sense of impending doom Treatment prior to arrival: oxygen (which she is out of), diuretics (takes as wants and feels) Cough present: No Sputum production: No - Related Data Home Medications Medication Instructions Recorded Confirmed Folic Acid 2 mg PO DAILY 04/23/15 05/25/17 Multivitamin/Iron/Folic Acid 1 tab PO DAILY 04/23/15 05/25/17 [Centrum Complete Multivit Tab] Nitroglycerin [Nitrostat] 0.4 mg SL Q5M PRN 04/23/15 05/25/17 Simvastatin [Zocor] 20 mg PO HS 04/23/15 05/25/17 Vitamin E 1,000 units PO DAILY 04/23/15 05/25/17 ALPRAZolam [Xanax 1 MG Tablet] 1 mg PO TID PRN 01/29/16 05/25/17 Oxygen 3 l .ROUTE AD 07/17/16 05/25/17 Potassium Chloride [Klor-Con 20 meq PO DAILY 10/25/16 05/25/17 Sprinkle] Pregabalin [Lyrica] 75 mg PO BID 10/25/16 05/25/17 hydroCHLOROthiazide 25 mg PO DAILY 12/31/16 05/25/17 [Hydrochlorothiazide] Megestrol Acetate [Megace] 40 mg PO BID 01/23/17 05/25/17 Metoprolol XL (24 HR) Succ [Toprol 75 mg PO DAILY 01/23/17 05/25/17 Xl] Aspirin Enteric Coated [Aspirin EC] 325 mg PO DAILY 05/25/17 05/25/17 Previous Rx's Medication Instructions Recorded Lisinopril [Zestril] 40 mg PO DAILY #0 02/01/16 Acetaminophen [Tylenol] 650 mg PO Q6HR PRN tablet 01/07/17 Apixaban [Eliquis] 5 mg PO BID #60 tablet 01/07/17 Cholestyramine 4 gm PO QIDAC #120 packet 01/07/17 Omeprazole [PriLOSEC] 40 mg PO BIDAC #60 capsule. 01/07/17 Propylthiouracil 50 mg PO TID #90 tablet 01/07/17 Venlafaxine XR (24 HR) [Effexor Xr] 150 mg PO DAILY #30 cap.er.24h 01/07/17 Diltiazem CD (24hr) [Cardizem CD] 120 mg PO DAILY #30 cap.er.24h 01/27/17 Furosemide [Lasix] 40 mg PO BIDDIURETIC #60 tablet 01/27/17 Oxycodone HCl/Acetaminophen 1 each PO Q6H PRN #20 tablet 01/27/17 [Percocet 10-325 mg Tablet] Allergies Allergy/AdvReac Type Severity Reaction Status Date / Time hydrocodone [From Vicodin] Allergy Swelling Verified 12/31/16 15:38 of Lip/Tongue/Throat morphine AdvReac Rash Verified 03/02/17 16:57 All systems ED: reviewed and negative except as stated. Review of Systems: As Per HPI Constitutional: Denies: fever, chills, weakness Eyes: Denies: eye pain, eye discharge ENT ED: Denies: ear pain, throat pain Cardiovascular: Reports: chest pain, dyspnea on exertion, edema, paroxysmal nocturnal dyspnea Respiratory: Reports: cough, dyspnea, wheezes Gastrointestinal: Reports: abdominal pain. Denies: nausea, vomiting Genitourinary: Denies: urgency, dysuria Musculoskeletal: Denies: back pain, neck pain Integumentary: Denies: abrasion Neurological: Denies: headache Psychiatric: Denies: anxiety Endocrine: Denies: fatigue Hematological/Lymphatic: Denies: easy bleeding Allergic/Immunologic: Denies: facial swelling Past Medical History - Past Medical History Attestation: Yes The following information was validated with the patient. Source: patient, old records reviewed, nursing notes reviewed Medical history: Reports: atrial fibrillation, CHF, COPD, coronary artery disease, hyperlipidemia, hypertension, osteoporosis, thyroid disease, other Surgical history: Reports: cholecystectomy, coronary bypass (CABG), hysterectomy , other Psychiatric history: Reports: depression, other - Social History Smoking Status: Never smoker Smokeless Tobacco Status: No Alcohol use: Reports: none Drug use: Reports: none Physical Exam - General Limitations: physical limitation General appearance: alert, anxious, in distress (mild) - Head Head exam: atraumatic, normocephalic, normal inspection - Eye Eye exam: Present: normal appearance, PERRL, EOMI - ENT ENT exam: normal exam, normal oropharynx, mucous membranes moist, TM's normal bilaterally, normal external ear exam - Neck Neck exam: Present: normal inspection, full ROM, trachea midline - Chest Chest inspection: Present: normal inspection, other (Pending edema into the breast and into the arms up towards her shoulder region and over the abdominal area) - Respiratory Respiratory exam: Present: prolonged expiratory phase, other (Crackles throughout the lung roa) - Cardiovascular Cardiovascular exam: Present: tachycardia - Abdominal Exam Abdominal exam: Present: soft, Non-Tender, normal bowel sounds, other (pitting edema). Absent: mass, pulsatile mass - Extremities Exam Extremities exam: Present: full ROM, tenderness, normal capillary refill, pedal edema (3+). Absent: calf tenderness - Back Exam Back exam: Present: normal inspection, full ROM. Absent: tenderness - Neurological Exam Neurological exam: Present: alert, oriented X3 - Psychiatric Psychiatric exam: Present: normal affect, normal mood - Skin Skin exam: Present: warm, dry, intact, normal color Course Course Narrative: Patient is seen and examined patient has IV established EKG labs performed and review of the chest x-ray hernia, enlargement and worsening of pleural effusion she'll be given Bumex patient will be admitted - Reevaluation(s) Reevaluation #1: Discussed case with Dr. Aragon will keep her on Cardizem when necessary through the night if we need to we can add a drip at that point we will then continue her on Bumex for diuresis and pain management Vital Signs Temperature 97.7 F 07/05/17 22:20 Pulse Rate 109 07/05/17 22:20 Respiratory Rate 20 07/05/17 22:20 Blood Pressure 151/114 07/05/17 22:20 O2 Sat by Pulse Oximetry 97 07/05/17 22:20 Temperature 97.7 F 07/05/17 22:20 Pulse Rate 109 07/05/17 22:20 Respiratory Rate 20 07/05/17 22:20 Blood Pressure 151/114 07/05/17 22:20 O2 Sat by Pulse Oximetry 97 07/05/17 22:20 Oxygen Delivery Oxygen Delivery Nasal Cannula Shortness of Breath/Dyspnea - Differential Diagnosis Likely: congestive heart failure - Medical Records Medical records reviewed: Yes I reviewed the patient's medical records. - Lab Data Lab results reviewed: Yes I reviewed the patient's lab results. Result diagrams: 07/05/17 22:42 07/05/17 22:42 Lab Results 07/05/17 07/05/17 07/05/17 Range/Units 22:42 22:42 22:42 WBC 6.1 (4.3-11.1) K/mcL RBC 3.62 L (3.82-4.97) M/mcL Hgb 8.1 L (11.5-15.4) g/dL Hct 28.4 L (35.3-44.9) % MCV 78.5 L (83.0-100.0) fL MCH 22.4 L (28.0-33.3) pg MCHC 28.5 L (31.6-35.5) g/dL RDW 18.8 H (11.5-14.5) % Plt Count 129 L (140-400) K/mcL MPV 11.5 (9.4-12.4) fL Immature Gran % 0.2 (0-4) % Seg Neutrophils % 73.2 % Lymphocytes % 17.9 % Monocytes % 8.3 % Eosinophils % 0.2 % Basophils % 0.2 % Neutrophils # 4.5 (1.6-8.9) K/mcL Lymphocytes # 1.1 (0.6-4.6) K/mcL Monocytes # 0.5 (0.0-1.3) K/mcL Eosinophils # 0.0 (0.0-0.6) K/mcL Basophils # 0.0 (0.0-0.2) K/mcL Platelet Estimate Decreased L (Normal) Polychromasia 1+ A (Not Present) Hypochromasia Present A (Not Present) Poikilocytosis 1+ A (Not Present) Anisocytosis 2+ A (Not Present) Microcytosis Present A (Not Present) Macrocytosis Present A (Not Present) PT 15.5 H (9.4-12.1) Seconds INR 1.4 APTT 29.4 (26.0-36.0) Seconds Sodium 139 (136-145) mEq/L Potassium 3.5 (3.5-5.1) mEq/L Chloride 109 H (98-107) mEq/L Carbon Dioxide 21 L (23-29) mEq/L BUN 15 (8-23) mg/dL Creatinine 0.30 L (0.60-1.20) mg/dL Est GFR ( Amer) > 60 (> 60) Est GFR (Non-Af Amer) > 60 (> 60) BUN/Creatinine Ratio 50 H (6-26) Glucose 132 H (70-105) mg/dL Calculated Osmolality 291 (280-300) Calcium 8.2 L (8.6-10.3) mg/dL Magnesium 1.6 (1.6-2.6) mg/dL Total Bilirubin 0.7 (0.3-1.0) mg/dL AST 19 (13-39) Units/L ALT 15 (7-52) Units/L Alkaline Phosphatase 328 H (34-104) Units/L Troponin I < 0.03 (< 0.04) ng/mL Serum Total Protein 6.5 (6.4-8.9) g/dL Albumin 2.9 L (3.5-5.7) g/dL Globulin 3.6 H (2.4-3.5) g/dL Albumin/Globulin Ratio 0.8 L (1.1-2.2) Urine Color (Yellow) Urine Clarity (Clear) Urine pH (5.0-8.0) pH Units Ur Specific [place] (1.010-1.025) Urine Protein (Neg-Trace) mg/dL Urine Glucose (UA) (Normal) mg/dL Urine Ketones (Negative) mg/dL Urine Blood (Negative) Urine Nitrite (Negative) Urine Bilirubin (Negative) Urine Urobilinogen (Normal) mg/dL Ur Leukocyte Esterase (Negative) Urine Microscopic RBC (0-3) per hpf Urine Microscopic WBC (0-3) per hpf Ur Squamous Epith Cells (None-Few) per lpf Urine Bacteria (None-Few) per hpf Hyaline Casts (None-Few) per lpf Urine Mucus (Few) Ur Culture Indicated? (NO) 07/05/17 Range/Units 23:20 WBC (4.3-11.1) K/mcL RBC (3.82-4.97) M/mcL Hgb (11.5-15.4) g/dL Hct (35.3-44.9) % MCV (83.0-100.0) fL MCH (28.0-33.3) pg MCHC (31.6-35.5) g/dL RDW (11.5-14.5) % Plt Count (140-400) K/mcL MPV (9.4-12.4) fL Immature Gran % (0-4) % Seg Neutrophils % % Lymphocytes % % Monocytes % % Eosinophils % % Basophils % % Neutrophils # (1.6-8.9) K/mcL Lymphocytes # (0.6-4.6) K/mcL Monocytes # (0.0-1.3) K/mcL Eosinophils # (0.0-0.6) K/mcL Basophils # (0.0-0.2) K/mcL Platelet Estimate (Normal) Polychromasia (Not Present) Hypochromasia (Not Present) Poikilocytosis (Not Present) Anisocytosis (Not Present) Microcytosis (Not Present) Macrocytosis (Not Present) PT (9.4-12.1) Seconds INR APTT (26.0-36.0) Seconds Sodium (136-145) mEq/L Potassium (3.5-5.1) mEq/L Chloride (98-107) mEq/L Carbon Dioxide (23-29) mEq/L BUN (8-23) mg/dL Creatinine (0.60-1.20) mg/dL Est GFR ( Amer) (> 60) Est GFR (Non-Af Amer) (> 60) BUN/Creatinine Ratio (6-26) Glucose (70-105) mg/dL Calculated Osmolality (280-300) Calcium (8.6-10.3) mg/dL Magnesium (1.6-2.6) mg/dL Total Bilirubin (0.3-1.0) mg/dL AST (13-39) Units/L ALT (7-52) Units/L Alkaline Phosphatase (34-104) Units/L Troponin I (< 0.04) ng/mL Serum Total Protein (6.4-8.9) g/dL Albumin (3.5-5.7) g/dL Globulin (2.4-3.5) g/dL Albumin/Globulin Ratio (1.1-2.2) Urine Color Yellow (Yellow) Urine Clarity Clear (Clear) Urine pH 5.0 (5.0-8.0) pH Units Ur Specific [place] 1.025 (1.010-1.025) Urine Protein Trace (Neg-Trace) mg/dL Urine Glucose (UA) Normal (Normal) mg/dL Urine Ketones Negative (Negative) mg/dL Urine Blood Negative (Negative) Urine Nitrite Positive A (Negative) Urine Bilirubin Negative (Negative) Urine Urobilinogen Normal (Normal) mg/dL Ur Leukocyte Esterase Negative (Negative) Urine Microscopic RBC 0-3 (0-3) per hpf Urine Microscopic WBC 0-3 (0-3) per hpf Ur Squamous Epith Cells Many H (None-Few) per lpf Urine Bacteria Moderate H (None-Few) per hpf Hyaline Casts Few (None-Few) per lpf Urine Mucus Moderate H (Few) Ur Culture Indicated? NO. A (NO) - Radiology Data Radiology results reviewed: Yes I reviewed the patient's radiology results. INCrease cardiomegaly and increased right-sided pleural effusion - EKG Data EKG attestation: Yes I reviewed and interpreted this EKG. EKG results narrative: Tachycardia with left ventricular hypertrophy and ST changes rate 109 [place] 86 QRS to 98 access 10 P wave appears to be about 160 with intermittent afib Critical Care Time Critical Care Time: Yes Total Critical Care Time: 35 Attestation: Critical care performed: 35 minutes as result of the patient at one point being in atrial fib with RVR requiring Cardizem and essentially improved her blood pressure from 88/44-146/70 patient was resting much more comfortably with the slower heart rate which also increased contractility which will help increase and improve her diuresis I've been advised though by the patient that she took her last dose of pain medicine and as result this could even throw her into a drug withdrawal on top of the underlying atrial fib and congestive heart failure as result continue pain medication while in the hospital to prevent a withdrawal-type presentation which could cause further distress to the patient I have spoke with patient and family about further follow-up Time is exclusive of separately billable procedures. Time includes: direct patient care, patient reassessment, coordination of patient care, interpretation of data (laboratory data, radiology data, and respiratory data), review of patient's medical records, medical consultation and documentation of patient care. Procedures included in critical care time: Procedures excluded from critical care time:
[2017-07-05] MEDS ORDERED: Bumetanide 1 MG/4 ML VIAL IVP ONE (22:42)
[2017-07-05 22:51] LABS: Basophils % 0.2 %; Eosinophils % 0.2 %; Hematocrit 28.4 % (35.3-44.9); Hemoglobin 8.1 g/dL (11.5-15.4); Immature Granulocytes % 0.2 % (0-4); Lymphocytes # 1.1 K/mcL (0.6-4.6); Lymphocytes % 17.9 %; Mean Corpuscular HGB Conc 28.5 g/dL (31.6-35.5); Mean Corpuscular Hemoglobin 22.4 pg (28.0-33.3); Mean Corpuscular Volume 78.5 fL (83.0-100.0); Mean Platelet Volume 11.5 fL (9.4-12.4); Monocytes # 0.5 K/mcL (0.0-1.3); Monocytes % 8.3 %; Neutrophils # 4.5 K/mcL (1.6-8.9); Platelet Count 129 K/mcL (140-400); Red Blood Count 3.62 M/mcL (3.82-4.97); Red Cell Distribution Width 18.8 % (11.5-14.5); Segmented Neutrophils % 73.2 %
[2017-07-05 23:00] LABS: INR 1.4; Prothrombin Time 15.5 Seconds (9.4-12.1)
[2017-07-05 23:02] LABS: Activated Partial Thrombo Time 29.4 Seconds (26.0-36.0); Hypochromasia Present (Not Present); Macrocytosis Present (Not Present); Poikilocytosis 1+ (Not Present); Polychromasia 1+ (Not Present)
[2017-07-05 23:04] LABS: Platelet Estimate Decreased (Normal)
[2017-07-05 23:05] LABS: Anisocytosis 2+ (Not Present); Microcytosis Present (Not Present)
[2017-07-05 23:11] LABS: Alanine Aminotransferase 15 Units/L (7-52); Albumin 2.9 g/dL (3.5-5.7); Albumin/Globulin Ratio 0.8 (1.1-2.2); Alkaline Phosphatase 328 Units/L (34-104); Aspartate Amino Transferase 19 Units/L (13-39); BUN/Creatinine Ratio 50 (6-26); Bilirubin,Total 0.7 mg/dL (0.3-1.0); Blood Urea Nitrogen 15 mg/dL (8-23); Calcium 8.2 mg/dL (8.6-10.3); Carbon Dioxide 21 mEq/L (23-29); Chloride 109 mEq/L (98-107); Globulin 3.6 g/dL (2.4-3.5); Glucose 132 mg/dL (70-105); Magnesium 1.6 mg/dL (1.6-2.6); Osmolality,Calculated 291 (280-300); Potassium 3.5 mEq/L (3.5-5.1); Sodium 139 mEq/L (136-145); Total Protein 6.5 g/dL (6.4-8.9); Troponin I < 0.03 ng/mL (< 0.04); eGFR For African Americans > 60 (> 60); eGFR For Non-African Americans > 60 (> 60)
[2017-07-05] MEDS ORDERED: *HR* OxyCODONE Immed Rel 5 MG TABLET PO ONE (23:19)
[2017-07-05 23:32] LABS: Bilirubin,Urine Negative (Negative); Blood,Urine Negative (Negative); Clarity,Urine Clear (Clear); Color,Urine Yellow (Yellow); Glucose,Urine (UA) Normal (Normal); Ketones,Urine Negative (Negative); Leukocyte Esterase,Urine Negative (Negative); Nitrite,Urine Positive (Negative); Protein,Urine Trace mg/dL (Neg-Trace); Specific Gravity,Urine 1.025 (1.010-1.025); Urobilinogen,Urine Normal (Normal)
[2017-07-05 23:40] LABS: Bacteria,Urine Moderate per hpf (None-Few); Hyaline Casts,Urine Few per lpf (None-Few); Mucus,Urine Moderate (Few); Squamous Epithelial Cell,Urine Many per lpf (None-Few)
[2017-07-05 23:41] LABS: RBC,Urine 0-3 per hpf (0-3); WBC,Urine 0-3 per hpf (0-3)
[2017-07-05 23:43] LABS: Thyroid Stimulating Hormone < 0.010 mcIU/mL (0.340-5.600)
[2017-07-05 23:56] LABS: Amphetamine Screen,Urine Negative ng/mL (Cutoff=1000); Barbiturate Screen,Urine Negative ng/mL (Cutoff=200); Benzodiazepines Screen,Urine Negative ng/mL (Cutoff=200); Cannabinoid Screen,Urine Negative ng/mL (Cutoff = 50); Cocaine Screen,Urine Negative ng/mL (Cutoff= 300); Opiate Screen,Urine Positive ng/mL (Cutoff=300); Phencyclidine Screen,Urine Negative ng/mL (Cutoff=25)
[2017-07-06] MEDS ORDERED: Nitroglycerin 0.4 MG TAB.SUBL SL PRN (00:26)
[2017-07-06] MEDS ORDERED: NON-FORMULARY MEDICATION 1 EACH EACH (Oxygen [Oxygen] 3 L) SCH (00:26)
[2017-07-06] MEDS ORDERED: Naloxone 0.4 MG/ML INJ IVP PRN (00:26)
[2017-07-06] MEDS ORDERED: ALPRAZolam 1 MG TABLET PO PRN (00:26)
[2017-07-06] MEDS ORDERED: *HR* OxyCODONE/APAP 10/325 TABLET PO PRN (00:26)
[2017-07-06] MEDS: Acetaminophen 325 MG TABLET PO PRN (02:12)
[2017-07-06] MEDS: *HR* OxyCODONE/APAP 10/325 TABLET PO PRN ×4 (03:22→20:45)
[2017-07-06] MEDS ORDERED: *HR* HYDROmorphone (PF) 1 MG/ML SYRINGE IVP ONE (04:50)
[2017-07-06 05:11] LABS: Eosinophils % 0.2 %; Hematocrit 24.6 % (35.3-44.9); Hemoglobin 7.2 g/dL (11.5-15.4); Immature Granulocytes % 0.2 % (0-4); Lymphocytes # 0.9 K/mcL (0.6-4.6); Lymphocytes % 16.8 %; Mean Corpuscular HGB Conc 29.3 g/dL (31.6-35.5); Mean Corpuscular Hemoglobin 22.4 pg (28.0-33.3); Mean Corpuscular Volume 76.6 fL (83.0-100.0); Mean Platelet Volume 11.5 fL (9.4-12.4); Monocytes # 0.5 K/mcL (0.0-1.3); Neutrophils # 3.9 K/mcL (1.6-8.9); Platelet Count 117 K/mcL (140-400); Red Blood Count 3.21 M/mcL (3.82-4.97); Red Cell Distribution Width 18.3 % (11.5-14.5); Segmented Neutrophils % 73.8 %
[2017-07-06 05:20] LABS: INR 1.4; Prothrombin Time 15.7 Seconds (9.4-12.1)
[2017-07-06 05:22] LABS: Activated Partial Thrombo Time 28.8 Seconds (26.0-36.0)
[2017-07-06 05:31] LABS: BUN/Creatinine Ratio 52 (6-26); Blood Urea Nitrogen 13 mg/dL (8-23); Carbon Dioxide 26 mEq/L (23-29); Chloride 109 mEq/L (98-107); Glucose 104 mg/dL (70-105); Osmolality,Calculated 294 (280-300); Potassium 3.2 mEq/L (3.5-5.1); Sodium 142 mEq/L (136-145); eGFR For African Americans > 60 (> 60); eGFR For Non-African Americans > 60 (> 60)
[2017-07-06 05:36] LABS: Polychromasia 1+ (Not Present)
[2017-07-06 05:37] LABS: Hypochromasia Present (Not Present); Macrocytosis Present (Not Present); Platelet Estimate Decreased (Normal)
[2017-07-06 05:38] LABS: Anisocytosis 2+ (Not Present); Microcytosis Present (Not Present); Poikilocytosis 1+ (Not Present)
[2017-07-06 05:41] LABS: Large Platelets Present (Not Present)
[2017-07-06] MEDS: Cholestyramine 4 GM POWD.PACK PO SCH ×4 (08:37→20:44)
[2017-07-06] MEDS: Venlafaxine XR (24 HR) 150 MG CAP.ER.24H PO SCH (08:40)
[2017-07-06] MEDS: Lisinopril 20 MG TABLET PO SCH (08:40)
[2017-07-06] MEDS: Folic Acid 1 MG TABLET PO SCH (08:41)
[2017-07-06] MEDS: Metoprolol XL (24 HR) Succ 50 MG TAB.ER.24H PO SCH (08:41)
[2017-07-06] MEDS: Apixaban 5 MG TABLET PO SCH ×2 (08:46→20:44)
[2017-07-06] MEDS: Diltiazem CD (24hr) 120 MG CAPSULE PO SCH (08:47)
[2017-07-06] MEDS: Multivit/Ca/Min/Fe/FA 1 TAB TABLET PO SCH (08:47)
[2017-07-06] MEDS: Bumetanide 1 MG/4 ML VIAL IVP SCH ×2 (08:48→16:31)
[2017-07-06] MEDS ORDERED: Pregabalin 75 MG CAPSULE PO SCH (09:00)
[2017-07-06] MEDS ORDERED: Aspirin Enteric Coated 325 MG Tablet PO SCH (09:00)
[2017-07-06] MEDS: hydroCHLOROthiazide 25 MG TABLET PO SCH (11:51)
--- NOTE | 2017-07-06 11:59 | Internal Med History&Physical ---
Date of Encounter: 07/06/17 Time of Encounter: 11:00 Assessment and Plan (1) Diastolic CHF, acute on chronic Current visit: No Status: Acute She has been started on IV Bumex. Lisinopril and Toprol will be continued. Lanoxin and isosorbide will be started. (2) Hyperthyroidism Current visit: No Status: Chronic Will restart PTU. She needs referral to endocrinology for consideration for radioactive iodine treatment. (3) Thrombocytopenia Current visit: No Status: Acute Will monitor platelet count. (4) Anemia Current visit: No Status: Chronic Suspect iron deficiency from aspirin and Eliquis use. We will order anemia testing. Qualifiers: Anemia type: iron deficiency Iron deficiency anemia type: chronic blood loss Qualified Code(s): D50.0 - Iron deficiency anemia secondary to blood loss (chronic) (5) Type 2 diabetes mellitus Current visit: No Status: Resolved Hemoglobin A 1C was 4.7% on 01/01/2017. Appears diet controlled. Qualifiers: Diabetes mellitus chcf insulin use: without chcf use Diabetes mellitus complication status: without complication Qualified Code(s): E11.9 - Type 2 diabetes mellitus without complications (6) Hypokalemia Current visit: No Status: Acute Potassium level decreased to 3.2 today. Will increase supplemental potassium. (7) Weakness generalized Current visit: No Status: Acute Will order PT and OT evaluation. Internal Medicine - H&P: HPI Chief complaint: Dyspnea, edema Admitted From: Emergency Dept Plans for Post Hospital Care: Home History of present illness: Ms. Rivas is a 61 year old female who came to emergency room stating she had 5 day history of increasing dyspnea and leg edema edema. She reports she been out of several of her medications for a few days to a few weeks. She reports she was dismissed from her PCP practice because of failure to keep appointments. She was evaluated in emergency room and found to have exacerbation of heart failure and atrial fibrillation with RVR. She was admitted to [facility] floor for ongoing care needs. She states she was hospitalized at [facility] in April 2016 with AF with RVR. She denies previous episodes of atrial fibrillation before that hospitalization. Her cardiovascular history is significant otherwise for hypertension and known ASHD status post [place] with 2 vessel CABG surgery 2001. She had a heart catheter during her [facility] stay [per her [facility] records]. She had a heart catheter previously at [facility] April 2015 which showed severe 2 vessel coronary disease with patent [place] to LAD but occluded saphenous vein graft to PDA. A Regadenoson EST 01/25/2017 at [facility] showed perfusion imaging negative for ischemia and EKG nondiagnostic due to baseline ST T abnormalities. An echocardiogram 11/23/2016 showed LVEF of 60%. There was left atrial enlargement 4.25 cm.. Diastolic function could not be assessed because of atrial fibrillation. There was mild aortic regurgitation, mitral regurgitation , and tricuspid regurgitation. Diastolic function cannot be assessed because of atrial fibrillation. There was mild aortic regurgitation, mitral regurgitation, tricuspid regurgitation. She denies DVT or pulmonary embolus. Past Med Surg Social Fam HX - Past Medical History Medical history: atrial fibrillation, CHF, COPD, coronary artery disease, hyperlipidemia, hypertension, osteoporosis, thyroid disease, other Psychiatric history: depression, other - Past Surgical History Surgical History: cholecystectomy, coronary bypass (CABG), hysterectomy, other - Social History Smoking Status: Never smoker Smokeless Tobacco Status: No Alcohol use: none Drug use: none - Family History Father Family Member Ethnicity: Non- Living Status: Hx Family Cardiac Disorders: Yes (TN) Brother Family Member Ethnicity: Non- Living Status: Sister Family Member Ethnicity: Non- Twin of Family Member: Yes, Identical Living Status: Hx Family Cardiac Disorders: Yes (afib) Hx Family Cancer: Yes (Colon) Mother Adopted: No Family Member Ethnicity: Non- Living Status: Hx Family Cardiac Disorders: Yes (TN) Hx Family Respiratory Disorders: No Hx Family Cancer: Yes (Colon ) Hx Family GI Disorders: Yes (Bowel Cancer) Hx Family Endocrine Disorder: Yes (DM) Hx Family Neuromuscular Disorders: No Hx Family Neurologic Disorders: No Hx Family HEENT Disorders: No Hx Family Autoimmune Disorders: No Internal Medicine - H&P: Meds Folic Acid 2 mg PO DAILY 04/23/15 [History] Multivitamin/Iron/Folic Acid [Centrum Complete Multivit Tab] 1 tab PO DAILY [History] Nitroglycerin [Nitrostat] 0.4 mg SL Q5M PRN 04/23/15 [History] Simvastatin [Zocor] 20 mg PO HS 04/23/15 [History] Vitamin E 1,000 units PO DAILY 04/23/15 [History] ALPRAZolam [Xanax 1 MG Tablet] 1 mg PO TID PRN 01/29/16 [History] Lisinopril [Zestril] 40 mg PO DAILY #0 02/01/16 [Rx] Oxygen 3 l .ROUTE AD 07/17/16 [History] Potassium Chloride [Klor-Con Sprinkle] 20 meq PO DAILY 10/25/16 [History] Pregabalin [Lyrica] 75 mg PO BID 10/25/16 [History] hydroCHLOROthiazide [Hydrochlorothiazide] 25 mg PO DAILY 12/31/16 [History] Acetaminophen [Tylenol] 650 mg PO Q6HR PRN tablet 01/07/17 [Rx] Apixaban [Eliquis] 5 mg PO BID #60 tablet 01/07/17 [Rx] Cholestyramine 4 gm PO QIDAC #120 packet 01/07/17 [Rx] Omeprazole [PriLOSEC] 40 mg PO BIDAC #60 capsule.dr 01/07/17 [Rx] Propylthiouracil 50 mg PO TID #90 tablet 01/07/17 [Rx] Venlafaxine XR (24 HR) [Effexor Xr] 150 mg PO DAILY #30 cap.er.24h 01/07/17 [Rx] Megestrol Acetate [Megace] 40 mg PO BID 01/23/17 [History] Metoprolol XL (24 HR) Succ [Toprol Xl] 75 mg PO DAILY 01/23/17 [History] Diltiazem CD (24hr) [Cardizem CD] 120 mg PO DAILY #30 cap.er.24h 01/27/17 [Rx] Furosemide [Lasix] 40 mg PO BIDDIURETIC #60 tablet 01/27/17 [Rx] Oxycodone HCl/Acetaminophen [Percocet 10-325 mg Tablet] 1 each PO Q6H PRN #20 tablet 01/27/17 [Rx] Aspirin Enteric Coated [Aspirin EC] 325 mg PO DAILY 05/25/17 [History] 3 Allergy/AdvReac Type Severity Reaction Status Date / Time hydrocodone [From Vicodin] Allergy Swelling Verified 12/31/16 15:38 of Lip/Tongue/Throat morphine AdvReac Rash Verified 03/02/17 16:57 All Systems PM: A 10-system review of systems was performed and is negative for pertinent findings except as documented above in the HPI. Review of systems: Gen.: Her weight has increased from 40.7 kg 01/07/2017 to 56.302 kg on admission now. She believes most of weight gain is due to edema fluid. Cardiovascular: As per history of present illness Respiratory: She states she is a lifelong nonsmoker. She reports being told she has COPD but denies remembrance of PFTs being done. She does not use home oxygen. GI: She has had cholecystectomy. She reports diarrhea for the last 7-8 months. She denies disorders of her liver or exocrine pancreas. She had gastric bypass surgery 2000. : She denies hematuria dysuria or kidney stones Neurologic: She denies large distribution strokes or seizures. Endocrine: She has hyperthyroidism with probable Graves' disease. She reports not taking propylthiouracil for approximately one month due to prescription lapse without refills. She has taken methimazole previously but developed thrombocytopenia. She reports a physician stated she needed to be treated with radioactive iodine but she has not received referral for this to be done. She takes a statin drug for ASHD and does not have known hyperlipidemia. She has been diagnosed the past with DM 2 but is not receiving treatment presumably because of remission from significant weight loss. Hematology/oncology: She has anemia. She denies internal malignancies or other blood disorders. Psychiatric: She denies anxiety depression or mental health issues Musk skeletal: She has arthritis and degenerative disc disease of her neck. - Constitutional Vitals: Temp Pulse Resp BP Pulse Ox 98.4 F 82 16 144/72 99 07/06/17 08:00 07/06/17 08:00 07/06/17 08:00 07/06/17 08:00 07/06/17 08:00 Exam: Gen.: She is a well-developed frail and pale female who appears older than age of 61. HEENT: Head is atraumatic and normocephalic. Eyes: EOMI. There is no scleral icterus. Mouth: Mucosa is dry. Neck: There is no thyromegaly or adenopathy noted. Heart: Irregularly irregular with rate approximately 80/m. Lungs: No wheezes or crackles are heard. There are diminished breath sounds in the bases bilaterally more on the left than the right. Abdomen: She has a well healed right upper quadrant oblique incision. There is a well-healed longitudinal midline incision. There is intertrigo in the lower skin folds of the abdomen. No masses or guarding are noted. Extremities: She has 3+ edema of the dorsum of the feet extending up to the thighs bilaterally. Dorsalis pedis and posttibial pulses are not palpable. There is trace presacral edema. There is no dependent edema of her arms. Neurologic: Mental status: She is talkative and a good historian. Cranial nerves: Smile is symmetric. Forehead wrinkles bilaterally. Tongue protrudes midline. EOMI. She is hard of hearing. Motor: There is no pronator drift. Cerebellar: Finger to nose is intact bilaterally. Skin: Warm and dry. Internal Med - H&P Results - Labs CBC & Chem 7: 07/06/17 04:50 07/06/17 04:50 Labs: Short CBC 07/06/17 Range/Units 04:50 WBC 5.2 (4.3-11.1) K/mcL Hgb 7.2 L (11.5-15.4) g/dL Hct 24.6 L (35.3-44.9) % Plt Count 117 L (140-400) K/mcL Neutrophils # 3.9 (1.6-8.9) K/mcL BMP 07/06/17 04:50 Sodium 142 Potassium 3.2 L Chloride 109 H Carbon Dioxide 26 BUN 13 Creatinine 0.25 L Glucose 104 Calcium 8.0 L Cardiac Enzymes 07/06/17 07/06/17 Range/Units 04:50 10:49 Troponin I < 0.03 < 0.03 (< 0.04) ng/mL - Impressions ITS Impressions Abdomen/Pelvis CT 07/06/17 06:29 IMPRESSION: 1. Cardiomegaly and evidence of edema. Findings suggesting mild congestive heart failure with stable moderate right and mild-moderate left pleural effusions. Stable significant diffuse soft tissue edematous changes with mild ascites. 2. No evidence of bowel obstruction or perforation. Mild nonspecific small bowel and colonic wall thickening which most likely relates to diffuse edema. 3. Subtle L2 superior endplate concavity which may relate to insufficiency fracture with less than 3% loss of height. D/ / 07/06/2017 07:55:24 Isaiah Aaron MD / jad Interpreting Provider: Isaiah Aaron MD
[2017-07-06] MEDS: Pregabalin 50 MG CAPSULE PO SCH ×2 (13:42→20:44)
[2017-07-06] MEDS: Isosorbide MONOnitrate (24 HR) 30 MG TAB.ER.24H PO SCH (13:51)
[2017-07-06] MEDS: *HR* Digoxin 0.25 MG TABLET PO SCH (13:51)
--- NOTE | 2017-07-06 15:52 | Electrocardiograph Report ---
[address] [address] Test Date: 2017-07-05 Pat Name: Da Rivas Department: [id number] Room: [facility] Gender: F Mobile Lounge Driver Or Operator: [id number] : 1955 Requested By: Gloria Glez Order Number: [id number] Reading MD: Trice Ball Measurements Intervals [place] Rate: 109 P: DE: 0 QRS: 10 QRSD: 86 T: 66 QT: 298 QTc: 362 Interpretive Statements SINUS TACHYCARDIA BORDERLINE FIRST DEGREE AVB LEFT VENTRICULAR HYPERTROPHY AND ST-T CHANGE Electronically Signed On 07-06-2017 15:51:09 EDT by Trice Ball
[2017-07-06 17:13] LABS: % Iron Saturation 4 % (15-50); Ferritin 30 ng/ml (10-120); Iron 16 mcg/dL (50-170); Transferrin 262 mg/dL (203-362)
[2017-07-06 17:40] LABS: Vitamin B12 477 pg/mL (250-1100)
[2017-07-06 17:41] LABS: Folate > 22.3 ng/mL (3.0-16.0)
[2017-07-07] MEDS: *HR* OxyCODONE/APAP 10/325 TABLET PO PRN ×3 (05:47→20:41)
[2017-07-07 06:29] LABS: Basophils % 0.1 %; Eosinophils % 0.4 %; Hematocrit 27.6 % (35.3-44.9); Hemoglobin 7.9 g/dL (11.5-15.4); Immature Granulocytes % 0.3 % (0-4); Lymphocytes # 1.1 K/mcL (0.6-4.6); Lymphocytes % 16.5 %; Mean Corpuscular HGB Conc 28.6 g/dL (31.6-35.5); Mean Corpuscular Hemoglobin 22.4 pg (28.0-33.3); Mean Corpuscular Volume 78.2 fL (83.0-100.0); Monocytes # 0.5 K/mcL (0.0-1.3); Monocytes % 7.7 %; Neutrophils # 5.2 K/mcL (1.6-8.9); Platelet Count 111 K/mcL (140-400); Red Blood Count 3.53 M/mcL (3.82-4.97); Red Cell Distribution Width 18.7 % (11.5-14.5)
[2017-07-07 07:26] LABS: Anisocytosis 1+ (Not Present); Hypochromasia Present (Not Present); Microcytosis Present (Not Present)
[2017-07-07 08:16] LABS: BUN/Creatinine Ratio 55 (6-26); Blood Urea Nitrogen 17 mg/dL (8-23); Calcium 8.4 mg/dL (8.6-10.3); Carbon Dioxide 26 mEq/L (23-29); Chloride 110 mEq/L (98-107); Glucose 80 mg/dL (70-105); Osmolality,Calculated 297 (280-300); Sodium 143 mEq/L (136-145); eGFR For African Americans > 60 (> 60); eGFR For Non-African Americans > 60 (> 60)
[2017-07-07] MEDS: Folic Acid 1 MG TABLET PO SCH (08:55)
[2017-07-07] MEDS: Cholestyramine 4 GM POWD.PACK PO SCH ×2 (08:55→20:40)
[2017-07-07] MEDS: Diltiazem CD (24hr) 120 MG CAPSULE PO SCH (08:55)
[2017-07-07] MEDS: Isosorbide MONOnitrate (24 HR) 30 MG TAB.ER.24H PO SCH (08:55)
[2017-07-07] MEDS: Apixaban 5 MG TABLET PO SCH ×2 (08:55→20:41)
[2017-07-07] MEDS: Lisinopril 20 MG TABLET PO SCH (08:55)
[2017-07-07] MEDS: *HR* Digoxin 0.25 MG TABLET PO SCH (08:55)
[2017-07-07] MEDS: Pregabalin 50 MG CAPSULE PO SCH ×2 (08:56→20:41)
[2017-07-07] MEDS: Multivit/Ca/Min/Fe/FA 1 TAB TABLET PO SCH (08:56)
[2017-07-07] MEDS: Acetaminophen 325 MG TABLET PO PRN ×2 (08:56→11:30)
[2017-07-07] MEDS: Venlafaxine XR (24 HR) 150 MG CAP.ER.24H PO SCH (08:56)
[2017-07-07] MEDS: hydroCHLOROthiazide 25 MG TABLET PO SCH (08:57)
[2017-07-07] MEDS: Bumetanide 1 MG/4 ML VIAL IVP SCH ×2 (08:57→17:19)
[2017-07-07] MEDS: Metoprolol XL (24 HR) Succ 50 MG TAB.ER.24H PO SCH (08:57)
--- NOTE | 2017-07-07 10:47 | Internal Med Progress Note ---
Date of Encounter: 07/07/17 Time of Encounter: 10:40 - Assessment and plan (1) Diastolic CHF, acute on chronic Current Visit: No Status: Acute Assessment and plan: July 07. Continue IV Bumex. Continue lisinopril, Toprol, Lanoxin, and isosorbide. (2) Hyperthyroidism Current Visit: No Status: Chronic Assessment and plan: July 07. Continue PTU. Continue Toprol and Lanoxin for AF rate control (3) Thrombocytopenia Current Visit: No Status: Acute Assessment and plan: July 07. Minimally changed. Continue to monitor (4) Anemia Current Visit: No Status: Chronic Assessment and plan: July 07. Anemia testing showed iron 16, transferrin saturation 4%, transferrin 262, ferritin 30, B12 477, and folate >22.3. Will give iron dextran and discontinue folate. Qualifiers: Anemia type: iron deficiency Iron deficiency anemia type: chronic blood loss Qualified Code(s): D50.0 - Iron deficiency anemia secondary to blood loss (chronic) (5) Type 2 diabetes mellitus Current Visit: No Status: Resolved Assessment and plan: July 07. Hemoglobin A1c was 4.7% on 01/01/2017. Diet controlled Qualifiers: Diabetes mellitus alf insulin use: without grocery store bagger use Diabetes mellitus complication status: without complication Qualified Code(s): E11.9 - Type 2 diabetes mellitus without complications (6) Hypokalemia Current Visit: No Status: Acute Assessment and plan: July 07. Potassium normalized to 4.0. Continue present regimen. (7) Weakness generalized Current Visit: No Status: Acute Assessment and plan: July 07. Continue PT and OT intervention. Anticipate discharge home tomorrow if stable. (8) Low vitamin D level Current Visit: No Status: Acute Assessment and plan: July 07. Vitamin D level very low at 10 ng/mL. Will start vitamin D supplement. - Subjective Interval history: Main 9. She has no new complaints and feels slightly better. She still has some discomfort in her stomach. - Constitutional Vitals: Temp Pulse Resp BP Pulse Ox 98.3 F 75 18 127/74 99 07/07/17 07:13 07/07/17 07:13 07/07/17 07:13 07/07/17 07:13 07/07/17 07:13 Exam: She is resting comfortably in bed. She does not appear dyspneic. Her edema is minimally improved. Heart appears irregular but rate is controlled. Lungs are clear anteriorly. I reviewed her medications. I discussed pertinent lab results with her. Internal Medicine: Result - Labs CBC & Chem 7: 07/07/17 05:33 07/07/17 05:33 Labs: Short CBC 07/07/17 Range/Units 05:33 WBC 6.9 (4.3-11.1) K/mcL Hgb 7.9 L (11.5-15.4) g/dL Hct 27.6 L (35.3-44.9) % Plt Count 111 L (140-400) K/mcL Neutrophils # 5.2 (1.6-8.9) K/mcL BMP 07/07/17 05:33 Sodium 143 Potassium 4.0 Chloride 110 H Carbon Dioxide 26 BUN 17 Creatinine 0.31 L Glucose 80 Calcium 8.4 L - ABG Interpretation ABG results: PT/INR, D-dimer PT 15.7 Seconds (9.4-12.1) H 07/06/17 04:50 D-Dimer 1432 ng/mLFEU (0-500) H 07/06/17 04:50 Consult Discharge Plan - Plan Referrals: NONE,PCP [Primary Care Provider] - 1 week
[2017-07-07] MEDS: Cholecalciferol (D-3) 1,000 UNIT TABLET PO SCH (11:31)
[2017-07-07] MEDS ORDERED: IRON DEXTRAN COMPLEX IVPB ONE (12:30)
[2017-07-07] MEDS ORDERED: SODIUM CHLORIDE 0.9% IVPB ONE (12:30)
[2017-07-08] MEDS: *HR* OxyCODONE/APAP 10/325 TABLET PO PRN ×2 (07:53→15:28)
[2017-07-08] MEDS: Bumetanide 1 MG/4 ML VIAL IVP SCH (08:46)
[2017-07-08] MEDS: Isosorbide MONOnitrate (24 HR) 30 MG TAB.ER.24H PO SCH (08:47)
[2017-07-08] MEDS: Diltiazem CD (24hr) 120 MG CAPSULE PO SCH (08:47)
[2017-07-08] MEDS: hydroCHLOROthiazide 25 MG TABLET PO SCH (08:47)
[2017-07-08] MEDS: *HR* Digoxin 0.25 MG TABLET PO SCH (08:47)
[2017-07-08] MEDS: Pregabalin 50 MG CAPSULE PO SCH (08:48)
[2017-07-08] MEDS: Lisinopril 20 MG TABLET PO SCH (08:48)
[2017-07-08] MEDS: Metoprolol XL (24 HR) Succ 50 MG TAB.ER.24H PO SCH (08:49)
[2017-07-08] MEDS: Multivit/Ca/Min/Fe/FA 1 TAB TABLET PO SCH (08:50)
[2017-07-08] MEDS: Cholecalciferol (D-3) 1,000 UNIT TABLET PO SCH (08:50)
[2017-07-08] MEDS: Venlafaxine XR (24 HR) 150 MG CAP.ER.24H PO SCH (08:50)
[2017-07-08] MEDS: Cholestyramine 4 GM POWD.PACK PO SCH (08:50)
[2017-07-08 11:06] VITALS: BP 107/71
--- NOTE | 2017-07-08 11:10 | Discharge Summary ---
Date of Encounter: 07/08/17 Time of Encounter: 10:50 - Discharge Diagnosis (1) Diastolic CHF, acute on chronic Priority: Primary Status: Acute (2) Hyperthyroidism Priority: Secondary Status: Chronic (3) Thrombocytopenia Priority: Secondary Status: Acute (4) Anemia Priority: Secondary Status: Chronic Qualifiers: Anemia type: iron deficiency Iron deficiency anemia type: chronic blood loss Qualified Code(s): D50.0 - Iron deficiency anemia secondary to blood loss (chronic) (5) Type 2 diabetes mellitus Priority: Secondary Status: Resolved Qualifiers: Diabetes mellitus senior care insulin use: without longwall headgate operator use Diabetes mellitus complication status: without complication Qualified Code(s): E11.9 - Type 2 diabetes mellitus without complications (6) Hypokalemia Priority: Secondary Status: Acute (7) Weakness generalized Priority: Secondary Status: Acute (8) Low vitamin D level Priority: Secondary Status: Acute Hospital course: Ms. Rivas is a 61 year old female who came to emergency room stating she had 5 day history of increasing dyspnea and leg edema edema. She reports she been out of several of her medications for a few days to a few weeks. She reports she was dismissed from her PCP practice because of failure to keep appointments. She was evaluated in emergency room and found to have exacerbation of heart failure and atrial fibrillation with RVR. She was admitted to [facility] floor for ongoing care needs. Initial orders were written by the emergency room physician. I saw her on July 06 and performed the history and physical. She was started on IV Bumex. Toprol and lisinopril were continued. Lanoxin and Imdur were started. She had clinical improvement with decreased dyspnea and peripheral edema on this regimen. She will continue oral Bumex and the other medications upon discharge. Lyrica was tapered off to avoid worsening edema. PTU was restarted for her hyperthyroidism at a dose of 100 mg 3 times a day. Her PCP can monitor her thyroid indices and determine the need for referral for definitive treatment with radioactive iodine. Anemia testing showed iron 16, transferrin saturation 4%, transferrin 262, ferritin 30, B12 4 and 77, and folate > 22.3. Supplemental folate was discontinued. She was given iron dextran IV. Aspirin dose was decreased to 81 mg daily at discharge. Her PCP can monitor anemia. She was started on Lanoxin and PTU as per above. Atrial fibrillation with RVR resolved and she remained in normal sinus rhythm during the remainder of her hospital stay. On July 08 she felt significantly improved and stable for discharge home. She will follow with Betsy Mcneil CNP within 1 week. - Time Spent with Patient Total time spent providing and/or coordinating discharge services: - Discharge Medications Prescriptions: Aspirin [Lo-Dose Aspirin EC] 81 mg PO DAILY 365 Days tablet.dr Gilliammetfranciscode [Bumex] 1 mg PO DAILY #30 tablet Cholecalciferol (D-3) [Vitamin D] 2,000 unit PO DAILY #60 tablet Digoxin [Lanoxin] 0.125 mg PO DAILY #30 tablet Isosorbide MONOnitrate (24 HR) [Imdur] 30 mg PO DAILY #30 tab.er.24h Propylthiouracil 100 mg PO TID #180 tablet Home Medications: Multivitamin/Iron/Folic Acid [Centrum Complete Multivit Tab] 1 tab PO DAILY [History] Nitroglycerin [Nitrostat] 0.4 mg SL Q5M PRN 04/23/15 [History] Simvastatin [Zocor] 20 mg PO HS 04/23/15 [History] Vitamin E 1,000 units PO DAILY 04/23/15 [History] ALPRAZolam [Xanax 1 MG Tablet] 1 mg PO TID PRN 01/29/16 [History] Lisinopril [Zestril] 40 mg PO DAILY #0 02/01/16 [Rx] Oxygen 3 l .ROUTE AD 07/17/16 [History] Potassium Chloride [Klor-Con Sprinkle] 20 meq PO DAILY 10/25/16 [History] hydroCHLOROthiazide [Hydrochlorothiazide] 25 mg PO DAILY 12/31/16 [History] Acetaminophen [Tylenol] 650 mg PO Q6HR PRN tablet 01/07/17 [Rx] Apixaban [Eliquis] 5 mg PO BID #60 tablet 01/07/17 [Rx] Venlafaxine XR (24 HR) [Effexor Xr] 150 mg PO DAILY #30 cap.er.24h 01/07/17 [Rx] Metoprolol XL (24 HR) Succ [Toprol Xl] 75 mg PO DAILY 01/23/17 [History] Diltiazem CD (24hr) [Cardizem CD] 120 mg PO DAILY #30 cap.er.24h 01/27/17 [Rx] Oxycodone HCl/Acetaminophen [Percocet 10-325 mg Tablet] 1 each PO Q6H PRN #20 tablet 01/27/17 [Rx] Aspirin [Lo-Dose Aspirin EC] 81 mg PO DAILY 365 Days tablet. 07/08/17 [Rx] Bumetanide [Bumex] 1 mg PO DAILY #30 tablet 07/08/17 [Rx] Cholecalciferol (D-3) [Vitamin D] 2,000 unit PO DAILY #60 tablet 07/08/17 [Rx] Digoxin [Lanoxin] 0.125 mg PO DAILY #30 tablet 07/08/17 [Rx] Isosorbide MONOnitrate (24 HR) [Imdur] 30 mg PO DAILY #30 tab.er.24h 07/08/17 [ Rx] Propylthiouracil 100 mg PO TID #180 tablet 07/08/17 [Rx] Allergies/Adverse Reactions: 3 Allergy/AdvReac Type Severity Reaction Status Date / Time hydrocodone [From Vicodin] Allergy Swelling Verified 12/31/16 15:38 of Lip/Tongue/Throat morphine AdvReac Rash Verified 03/02/17 16:57 Date of admission: 07/06/17 11:58 Primary care physician: PCP NONE Consults: 07/06/17 12:26 Consult to Occupational Therapy [CONS] Routine Comment: Evaluate, develop and implement POC Reason for Consult: Weakness Does patient have active BEDREST order?: No Is patient medically & hemodynamically stable?: Yes Patient assessed for mobility or mobilized this visit?: Yes Consult to Physical Therapy [CONS] Routine Comment: Evaluate, develop and implement POC Reason for Consult: Weakness Does patient have active BEDREST order?: No Is patient medically & hemodynamically stable?: Yes Patient assessed for mobility or mobilized this visit?: Yes - Constitutional Vitals: Temp Pulse Resp BP Pulse Ox 98.7 F 66 17 138/91 95 07/08/17 05:49 07/08/17 05:49 07/08/17 05:49 07/08/17 05:49 07/08/17 05:49 - Patient Status Disposition: Home Health Service Condition: Fair Functional capacity at discharge: independent ambulation Overall status at discharge: patient is progressing back to baseline - Discharge Instructions Follow Up With: Betsy Mcneil DEVELOPMENT ARCHITECT [Advanced Practice Nurse] - 1 week - Diet and Activity Activity: resume usual activities as tolerated, wear oxygen at all times Diet: advance to your usual diet
--- NOTE | 2017-07-08 11:18 | Physician Discharge Referral ---
Home Health/Hosp Referral Info Transfer to: Home Health Attending Provider: Mahesh Provider in Charge Post Discharge: PCP Franklyn) - Diagnosis (1) Diastolic CHF, acute on chronic Priority: Primary Status: Acute (2) Hyperthyroidism Priority: Secondary Status: Chronic (3) Thrombocytopenia Priority: Secondary Status: Acute (4) Anemia Priority: Secondary Status: Chronic (5) Type 2 diabetes mellitus Priority: Secondary Status: Resolved (6) Hypokalemia Priority: Secondary Status: Acute (7) Weakness generalized Priority: Secondary Status: Acute (8) Low vitamin D level Priority: Secondary Status: Acute - Respiratory Orders Oxygen / L per min (2 L/m by nasal cannula 21/09.) Smoking Cessation: Smoking cessation has been advised. For more information, call the [place] Tobacco Quit Line at 2-137-WURL-NOW. - Diet/Nutrition Diet/Nutrition Orders: Regular - Activity Activity Orders: Ambulate - Services Needed Following services are medically necessary services: Nursing, Home Health Aide, Physical Therapy, Occupational Therapy - Transfer Medications Prescriptions: Aspirin [Lo-Dose Aspirin EC] 81 mg PO DAILY 365 Days tablet.dr Gilliammetanide [Bumex] 1 mg PO DAILY #30 tablet Cholecalciferol (D-3) [Vitamin D] 2,000 unit PO DAILY #60 tablet Digoxin [Lanoxin] 0.125 mg PO DAILY #30 tablet Isosorbide MONOnitrate (24 HR) [Imdur] 30 mg PO DAILY #30 tab.er.24h Propylthiouracil 100 mg PO TID #180 tablet Home Medications: Multivitamin/Iron/Folic Acid [Centrum Complete Multivit Tab] 1 tab PO DAILY [History] Nitroglycerin [Nitrostat] 0.4 mg SL Q5M PRN 04/23/15 [History] Simvastatin [Zocor] 20 mg PO HS 04/23/15 [History] Vitamin E 1,000 units PO DAILY 04/23/15 [History] ALPRAZolam [Xanax 1 MG Tablet] 1 mg PO TID PRN 01/29/16 [History] Lisinopril [Zestril] 40 mg PO DAILY #0 02/01/16 [Rx] Oxygen 3 l .ROUTE AD 07/17/16 [History] Potassium Chloride [Klor-Con Sprinkle] 20 meq PO DAILY 10/25/16 [History] hydroCHLOROthiazide [Hydrochlorothiazide] 25 mg PO DAILY 12/31/16 [History] Acetaminophen [Tylenol] 650 mg PO Q6HR PRN tablet 01/07/17 [Rx] Apixaban [Eliquis] 5 mg PO BID #60 tablet 01/07/17 [Rx] Venlafaxine XR (24 HR) [Effexor Xr] 150 mg PO DAILY #30 cap.er.24h 01/07/17 [Rx] Metoprolol XL (24 HR) Succ [Toprol Xl] 75 mg PO DAILY 01/23/17 [History] Diltiazem CD (24hr) [Cardizem CD] 120 mg PO DAILY #30 cap.er.24h 01/27/17 [Rx] Oxycodone HCl/Acetaminophen [Percocet 10-325 mg Tablet] 1 each PO Q6H PRN #20 tablet 01/27/17 [Rx] Aspirin [Lo-Dose Aspirin EC] 81 mg PO DAILY 365 Days tablet. 07/08/17 [Rx] Bumetanide [Bumex] 1 mg PO DAILY #30 tablet 07/08/17 [Rx] Cholecalciferol (D-3) [Vitamin D] 2,000 unit PO DAILY #60 tablet 07/08/17 [Rx] Digoxin [Lanoxin] 0.125 mg PO DAILY #30 tablet 07/08/17 [Rx] Isosorbide MONOnitrate (24 HR) [Imdur] 30 mg PO DAILY #30 tab.er.24h 07/08/17 [ Rx] Propylthiouracil 100 mg PO TID #180 tablet 07/08/17 [Rx] Allergies/Adverse Reactions: 3 Allergy/AdvReac Type Severity Reaction Status Date / Time hydrocodone [From Vicodin] Allergy Swelling Verified 12/31/16 15:38 of Lip/Tongue/Throat morphine AdvReac Rash Verified 03/02/17 16:57 Certification: Further, I certify that my clinical findings support that this patient is homebound (i.e. absences from home require considerable and taxing effort and are for medical reasons or jainism services or infrequently or short duration when for other reasons) because: Homebound Reason: Leaving home requires considerable and taxing effort due to condition (Dyspnea on exertion.) Attestation: My signature below is to certify that this patient is under my care and that I, or nurse practitioner, or a physician's customer relations assistant working with me, has a face-to -face encounter with this patient.
[2017-07-08] MEDS: Apixaban 5 MG TABLET PO SCH (11:28)
== END 2017-07-08 16:50 | disposition home health service (06) | DRG 293 ==
LOC: INPPIK 22:20 → EMEROOPIK 22:20 → INPPIK 07-06 00:25
PROVIDERS: ADMIT Internal Medicine; ATTEND Internal Medicine

== ENCOUNTER 2021-02-19 14:51 | Inpatient (IN) ==
[2021-02-19 15:46] LABS: Basophils % 0.6 %; Eosinophils # 0.1 K/mcL (0.0-0.6); Eosinophils % 4.2 %; Hematocrit 29.2 % (35.3-44.9); Hemoglobin 8.4 g/dL (11.5-15.4); Immature Granulocytes % 0.3 % (0-4); Lymphocytes # 0.5 K/mcL (0.6-4.6); Mean Corpuscular HGB Conc 28.8 g/dL (31.6-35.5); Mean Corpuscular Hemoglobin 23.6 pg (28.0-33.3); Monocytes # 0.4 K/mcL (0.0-1.3); Neutrophils # 2.4 K/mcL (1.6-8.9); Platelet Count 203 K/mcL (140-400); Red Blood Count 3.56 M/mcL (3.82-4.97); Segmented Neutrophils % 69.9 %; White Blood Count 3.4 K/mcL (4.3-11.1)
[2021-02-19 15:51] LABS: ABG Base Excess 0 mEq/L (-2 to 3); ABG HCO3 26 mEq/L (21-27); ABG Oxygen Saturation 100 % (95-98); ABG PCO2 44 mmHg (35-45); ABG PH 7.37 pH Units (7.32-7.45); ABG PO2 197 mmHg (85-104); ABG TCO2 27 mEq/L (20-26); Blood Gas FiO2 3.5 (1-15=lpm or21-100=%)
[2021-02-19 15:54] LABS: INR 1.6; Prothrombin Time 17.9 Seconds (9.4-12.1)
[2021-02-19 16:03] LABS: Anisocytosis 1+ (Not Present); Hypochromasia Present (Not Present); Microcytosis Present (Not Present); Platelet Estimate Normal (Normal)
[2021-02-19 16:06] LABS: Alanine Aminotransferase 16 Units/L (7-52); Albumin 3.2 g/dL (3.5-5.7); Albumin/Globulin Ratio 0.8 (1.1-2.2); Alkaline Phosphatase 239 Units/L (34-104); Aspartate Amino Transferase 26 Units/L (13-39); BUN/Creatinine Ratio 48 (6-26); Bilirubin,Direct 0.7 mg/dL (0.0-0.2); Bilirubin,Indirect 0.6 mg/dL (0.0-1.0); Bilirubin,Total 1.3 mg/dL (0.3-1.0); Blood Urea Nitrogen 22 mg/dL (8-23); Calcium 8.2 mg/dL (8.6-10.3); Carbon Dioxide 29 mEq/L (23-29); Chloride 105 mEq/L (98-107); Ethanol < 10 mg/dL (Less than 10); Glucose 62 mg/dL (70-105); Lipase 5 Units/L (11-82); Osmolality,Calculated 289 (280-300); Potassium 4.1 mEq/L (3.5-5.1); Sodium 139 mEq/L (136-145); Total Protein 7.2 g/dL (6.4-8.9); eGFR For African Americans > 60 (> 60); eGFR For Non-African Americans > 60 (> 60)
[2021-02-19] MEDS ORDERED: *HR* Dextrose 50 % in Water (Syg) 50 ML SYRINGE IVP ONE (16:08)
[2021-02-19] MEDS ORDERED: Furosemide 40 MG/4 ML VIAL IVP ONE (16:09)
[2021-02-19 16:39] LABS: Bilirubin,Urine Small (Negative); Blood,Urine Negative (Negative); Clarity,Urine Slightly Cloudy (Clear); Color,Urine Dark Yellow (Yellow); Glucose,Urine (UA) Normal (Normal); Ketones,Urine Negative (Negative); Leukocyte Esterase,Urine Negative (Negative); Nitrite,Urine Positive (Negative); Protein,Urine 30 mg/dL (Neg-Trace); Specific Gravity,Urine 1.025 (1.010-1.025); Urobilinogen,Urine >=8.0 mg/dL (Normal)
[2021-02-19 16:49] LABS: Bacteria,Urine Many per hpf (None-Few); Calcium Oxalate Crystals,Urine Present per hpf; RBC,Urine 0-3 per hpf (0-3); Squamous Epithelial Cell,Urine Few per hpf (None-Few)
[2021-02-19] MEDS ORDERED: Nitroglycerin 0.4 MG TAB.SUBL SL PRN (17:42)
[2021-02-19] MEDS ORDERED: Ipratropium/Albuterol Neb 3 ML IH PRN (17:42)
[2021-02-19] MEDS ORDERED: *HR* Warfarin 3 MG TABLET PO SCH (17:45)
[2021-02-19] MEDS ORDERED: cefTRIAXone 1,000 MG in 0.9 % Sodium Chloride Mini Bag 100 ML IVPB SCH (19:00)
[2021-02-19] MEDS: methIMAzole 5 MG TABLET PO SCH (20:49)
[2021-02-19] MEDS: Furosemide 40 MG/4 ML VIAL IVP SCH (20:49)
[2021-02-19] MEDS: Budesonide/Formoterol 160/4.5 1 PUFF INH IH SCH (21:04)
[2021-02-19 22:00] VITALS: TEMP 98.4
[2021-02-20] MEDS: *HR* OxyCODONE Immed Rel 5 MG TABLET PO PRN ×2 (03:16→10:33)
[2021-02-20 05:51] LABS: Basophils % 0.6 %; Eosinophils # 0.1 K/mcL (0.0-0.6); Eosinophils % 1.1 %; Hematocrit 29.2 % (35.3-44.9); Hemoglobin 8.6 g/dL (11.5-15.4); Immature Granulocytes % 0.2 % (0-4); Lymphocytes # 0.7 K/mcL (0.6-4.6); Lymphocytes % 12.3 %; Mean Corpuscular HGB Conc 29.5 g/dL (31.6-35.5); Mean Corpuscular Hemoglobin 23.9 pg (28.0-33.3); Mean Corpuscular Volume 81.1 fL (83.0-100.0); Monocytes # 0.4 K/mcL (0.0-1.3); Monocytes % 8.3 %; Neutrophils # 4.1 K/mcL (1.6-8.9); Platelet Count 207 K/mcL (140-400); Red Cell Distribution Width 19.1 % (11.5-14.5); Segmented Neutrophils % 77.5 %; White Blood Count 5.3 K/mcL (4.3-11.1)
[2021-02-20] MEDS ORDERED: *HR* HYDROmorphone (PF) 1 MG/ML SYRINGE IVP ONE (06:12)
[2021-02-20 06:13] LABS: BUN/Creatinine Ratio 33 (6-26); Blood Urea Nitrogen 18 mg/dL (8-23); Carbon Dioxide 33 mEq/L (23-29); Chloride 97 mEq/L (98-107); Glucose 84 mg/dL (70-105); Magnesium 1.8 mg/dL (1.6-2.6); Osmolality,Calculated 277 (280-300); Sodium 133 mEq/L (136-145); eGFR For African Americans > 60 (> 60); eGFR For Non-African Americans > 60 (> 60)
[2021-02-20 07:03] VITALS: BP 151/72; PULSE 85; RESP 18
[2021-02-20 08:46] LABS: Iron 17 mcg/dL (50-170)
[2021-02-20] MEDS ORDERED: Metoprolol XL (24 HR) Succ 25 MG TAB.ER.24H PO SCH (09:00)
[2021-02-20] MEDS ORDERED: FluocinoLONE Acet 0.025% CRM 15 GM TUBE TP SCH (09:00)
[2021-02-20] MEDS: Furosemide 40 MG/4 ML VIAL IVP SCH (09:00)
[2021-02-20] MEDS ORDERED: lisinopriL 5 MG TABLET PO SCH (09:00)
[2021-02-20 09:04] LABS: Ferritin 26 ng/mL (10-120)
[2021-02-20] MEDS: methIMAzole 5 MG TABLET PO SCH ×2 (09:10→14:45)
[2021-02-20] MEDS: Budesonide/Formoterol 160/4.5 1 PUFF INH IH SCH (09:55)
[2021-02-20 09:58] VITALS: O2SAT 99
[2021-02-20] MEDS ORDERED: *HR* OxyCODONE Immed Rel 5 MG TABLET PO PRN (13:41)
[2021-02-20] MEDS ORDERED: Isovue-370 500 ML BOTTLE IVP ONE (13:48)
[2021-02-20] MEDS ORDERED: *HR* Rivaroxaban 10 MG TABLET PO SCH (17:00)
[2021-02-24 09:59] LABS: % Iron Saturation 4 % (15-50); Transferrin 305 mg/dL
== END 2021-02-20 17:05 | disposition short-term general hospital (02) | DRG 292 ==
LOC: EMEROOPIK 14:51 → INPPIK 14:51
PROVIDERS: ADMIT Internal Medicine; ATTEND Internal Medicine